=== PATIENT | female | born 1935 | race Caucasian/White ===

== ENCOUNTER 2021-05-01 10:26 | Emergency (ER) | payer MEDICARE, SELFPAY ==
--- NOTE | ~2021-05-01 | XR_ITS ---
EXAMINATION: XR lumbar spine min 4V DATE: 05/01/2021 11:11 INDICATION: Low back pain. Fall 3 weeks ago. TECHNIQUE: 5 views of lumbar spine were obtained. COMPARISON: None. FINDINGS: There is 15 degrees levoscoliosis of lumbar spine. Vertebral body heights are normal. There is moderately decreased disc height at L4-L5 and L5-S1. There are endplate osteophytes at all levels . There is severe facet joint osteoarthritis in lower lumbar spine. There is moderate neural foramina l stenosis on the right at L4-L5 and on the left at L4-L5 and L5-S1. There is a surgical clip in the pelvis. Surgical clips in the right upper quadrant are likely from cholecystectomy. IMPRESSION: 1. Moderate lumbar spondylosis. 2. Lumbar levoscoliosis. Reviewed, dictated and finalized at location A.
--- NOTE | ~2021-05-01 | XR_ITS ---
EXAMINATION: XR hip RT min 3V w AP pelvis DATE: 05/01/2021 11:11 INDICATION: Right hip pain. Fall 3 weeks ago. TECHNIQUE: An anteroposterior view of the pelvis and 3 views of right hip were obtained. COMPARISON: None. FINDINGS: There is lumbar levoscoliosis and moderate spondylosis. No fracture. There is moderate oste oarthritis of the hips. A surgical clip overlies the pelvis. IMPRESSION: 1. Moderate osteoarthritis of the hips. Reviewed, dictated and finalized at location A.
[2021-05-01 10:38] VITALS: PULSE 68; RESP 17; TEMP 36.4; O2SAT 100
[2021-05-01 10:47] VITALS: BP 154/60
--- NOTE | 2021-05-01 10:58 | ED.GENADULT ---
HPI - General Adult General Chief complaint: Unspecified Stated complaint: back to hip pain Time Seen by Provider: 05/01/21 10:31 Source: patient Mode of arrival: ambulatory Limitations: no limitations History of Present Illness HPI narrative: Patient is a 86-year-old female presenting with chief complaint of pain to the low back into the right hip that began after falling on her right knee 5 days ago. Patient reports she does not have any pain to the knee but approximately 2 days after the fall she began having pain to her low back and right hip. She reports that she has been taking tramadol that was prescribed to her by her primary care doctor for past back pain and that alleviates the discomfort however after 8 hours when the medication wears off the discomfort returns. She denies any head impact, loss of consciousness, injuries to any other areas. She denies any saddle paresthesias or loss of bowel or bladder function. Patient has still been able to ambulate without assistive devices. Patient reports that she saw her primary care to discuss the discomfort and was directed to report to the emergency department. Related Data Home Medications Medication Instructions Recorded Confirmed latanoprost 0.005 % eye drops 1 drop EACH EYE DAILY 12/01/19 11/23/20 amlodipine 5 mg tablet 5 mg PO DAILY 11/23/20 11/23/20 Allergies Allergy/AdvReac Type Severity Reaction Status Date / Time No Known Drug Allergies Allergy Unknown Verified 05/01/21 10:47 Review of Systems Review of Systems: CONSTITUTIONAL: Denies fever, chills, or sweats. EYES: Denies visual changes, redness, or discharge. ENT: Denies rhinorrhea, congestion, sore throat, or otalgia. CARDIOVASCULAR: Denies chest pain, palpitations, or edema. RESPIRATORY: Denies cough or dyspnea. GASTROINTESTINAL: Denies abdominal pain, nausea, vomiting, or diarrhea. GENITOURINARY: Denies dysuria or hematuria. SKIN: Denies rash or itching. MUSCULOSKELETAL: Reports hip pain and back pain, denies joint pain, or myalgia. NEUROLOGIC: Denies headache, numbness, dizziness, or weakness. PSYCHIATRIC: Denies anxiety or depression. [facility] Past Medical History Medical History (Updated 05/01/21 @ 12:29 by Silviano Segundo PA-C) Aortic stenosis JAMARI (generalized anxiety disorder) Glaucoma HTN (hypertension) Mixed hyperlipidemia Osteopenia Paroxysmal A-fib Tricuspid regurgitation Type 2 diabetes mellitus with diabetic chronic kidney disease Surgical History Surgical History History of appendectomy History of cholecystectomy History of total hysterectomy Family History Family History Mother Patient's mother is Carcinoma of colon Father Patient's father is Sibling Patient's sister is in good health Patient's brother is Carcinoma of esophagus Lymphoma Social History Social History (Updated 12/08/20 @ 10:10 by Diane Mccauley CMA) Social History: Second hand tobacco smoke exposure: No Alcohol intake: never Substance use: never Substance use type: does not use Gender identity (if verbalized by the patient): Female Sexual Orientation (if Verbalized by the Patient): Straight or Heterosexual Exam Narrative: GENERAL: Well-appearing, well-nourished, and in no acute distress. HEAD: Normocephalic, atraumatic. EYES: PERRLA and EOMI to left eye.Prosthetic device in right with chronic deformity to right orbit. CHEST: Clear to auscultation. No respiratory distress. No wheezes rales or rhonchi HEART: Regular rate and rhythm. ABDOMEN: Soft, nontender, nondistended, normal active bowel sounds. EXTREMITIES: Tenderness with palpation diffusely right side low back, gluteus, and over right greater trochanter. Normal range of motion. No edema or abrasions. No tenderness with palpation of right knee.
== END 2021-05-01 12:44 | disposition home or self-care (01) ==
PROVIDERS: Emergency Provider Emergency Medicine; PCP Family Medicine
DX: S76.011A Strain of muscle, fascia and tendon of right hip, initial encounter (principal); I48.0 Paroxysmal atrial fibrillation; I08.2 Rheumatic disorders of both aortic and tricuspid valves; E11.22 Type 2 diabetes mellitus with diabetic chronic kidney disease; I12.9 Hypertensive chronic kidney disease with stage 1 through stage 4 chronic kidney disease, or unspecified chronic kidney disease; N18.9 Chronic kidney disease, unspecified; E78.2 Mixed hyperlipidemia; H40.9 Unspecified glaucoma; M85.80 Other specified disorders of bone density and structure, unspecified site; M16.0 Bilateral primary osteoarthritis of hip; M47.816 Spondylosis without myelopathy or radiculopathy, lumbar region; W19.XXXA Unspecified fall, initial encounter
CPT/HCPCS: 72110; 73502; 99284

== ENCOUNTER 2021-07-21 13:08 | Observation (INO) | payer MEDICARE, SELFPAY ==
[2021-07-21] VITALS (8 sets, daily range): BP systolic 144–166; BP diastolic 48–62; PULSE 63–70; RESP 14–22; TEMP 36.4–36.9; O2SAT 96–98
--- NOTE | ~2021-07-21 | US_ITS ---
EXAMINATION: US carotid duplex BI EXAM DATE: 07/21/2021 18:06 INDICATION: Dizziness, transient ischemic attack. Right-sided facial droop. TECHNIQUE: Grayscale, color and pulsed Doppler images of the cervical carotid arteries were obtained . The degree of vessel stenosis is placed in one of the following categories: normal, <50% stenosis, 50-69% stenosis, >=70% stenosis but less than near-occlusion, near-occlusion, or occlusion. Note that percent stenosis relative to normal distal artery lumen diameter is indirectly measured from velocit y measurements as described by Alistair, et al. Radiology 2003; 229:340-346. There is no prior study fo r comparison. FINDINGS: RIGHT SIDE: Right common carotid artery peak systolic velocity (PSV in cm/s): 171 Right bulb/internal carotid artery peak systolic velocity (PSV in cm/s): 88 Right internal carotid artery end diastolic velocity (EDV in cm/s): 16 Right ICA/CCA peak systolic ratio: 0.5 Right external carotid artery peak systolic velocity (PSV in cm/s): 121 Right vertebral artery antegrade flow: yes There is mild carotid bulb plaque. Velocity and Doppler waveforms in the common and internal carotid arteries is normal. LEFT SIDE: Left common carotid artery peak systolic velocity (PSV in cm/s): 139 Left bulb/internal carotid artery peak systolic velocity (PSV in cm/s): 101 Left internal carotid artery end diastolic velocity (EDV in cm/s): 24 Left ICA/CCA peak systolic ratio: 0.7 Left external carotid artery peak systolic velocity (PSV in cm/s): 155 Left vertebral artery antegrade flow: yes There is mild carotid bulb plaque. Velocity and Doppler waveforms in the common and internal carotid arteries is normal. Incidental internal jugular chain lymph node, 8 mm in short axis diameter within normal size limits. Echogenic fatty hilum. IMPRESSION: 1. Less than 50 percent stenosis in the right internal carotid artery. 2. Less than 50 percent stenosis in the left internal carotid artery. > Reviewed, dictated and finalized at location A. [employer]
--- NOTE | ~2021-07-21 | MR_ITS ---
EXAMINATION: MR brain/brain stem wo/w con DATE: 07/22/2021 10:58 INDICATION: Vertigo. TECHNIQUE: Magnetic resonance imaging (MRI) of the brain and brainstem was performed without and with 15 mL MultiHance intravenous contrast. Sequences included sagittal and axial T1-weighted FSE, axial diffusion-weighted FS EPI, axial T2*-weighted GRE, axial T2-weighted FLAIR Propeller, and axial T2-we ighted Propeller. Postcontrast sequences included axial and coronal T1-weighted FSE. Apparent diffusi on coefficient (ADC) maps were created. COMPARISON: Head CT 07/21/2021 FINDINGS: There are scattered areas of nonspecific increased T2-weighted signal intensity in the cere bral white matter and pillo. There is no intracranial hemorrhage, acute infarction, or abnormal intrac ranial mass lesion. The ventricles are normal in size. There is a small right mastoid effusion. There are likely changes of left ocular lens replacement surgery. The right ocular globe is absent. There are surgical versus old posttraumatic changes of the right maxillary sinus. There is mucosal thickeni ng in right maxillary sinus. IMPRESSION: 1. Mild nonspecific cerebral white matter disease and pontine disease, which likely represents chroni c small vessel ischemic disease. Reviewed, dictated and finalized at location A. CARRIER IMPRESSION: 1. Mild nonspecific cerebral white matter disease and pontine disease, which maisha gabriel represents chronic small vessel ischemic disease.
--- NOTE | ~2021-07-21 | CT_ITS ---
EXAMINATION: CT brain wo con DATE: 07/21/2021 13:50 INDICATION: Weakness TECHNIQUE: Computed tomography (CT) of the head was performed without intravenous contrast. Sagittal and coronal reconstructions were performed. The mA was adjusted according to patient size. Iterative reconstruction technique was employed. The dose-length product was 605.33 mGy-cm. COMPARISON: None FINDINGS: No acute intracranial hemorrhage, acute infarction or abnormal extra axial fluid collection. Symmetri c prominence of the sulci consistent with mild age-appropriate diffuse cerebral volume loss. Ventricl es are normal and symmetric. No mass/mass effect. A prosthesis is present in the right orbit at the s ite of the absent globe. There also appears to been resection of portions of the weathers of the right m axillary sinus. The left orbit orbit, remainder of the paranasal sinuses and mastoid air cells are no rmal. IMPRESSION: 1. No acute intracranial process. 2. Postoperative changes at the right orbit and maxillary sinus. Reviewed, dictated and finalized at location B. LEGALS
--- NOTE | 2021-07-21 13:18 | ECG_ITS ---
Measurements Intervals [place] Rate: 64 P: 83 VA: 164 QRS: -21 QRSD: 93 T: 66 QT: 397 QTc: 411 Interpretive Statements SINUS RHYTHM INCOMPLETE RIGHT BUNDLE BRANCH BLOCK LEFT VENTRICULAR HYPERTROPHY AND ST-T CHANGE BASELINE ARTIFACT- I, II, III, AVR, AVL, AVF, V1-V6 BORDERLINE ECG Electronically Signed On 07-21-2021 14:20:13 [employer] by George Goetz D.O.
--- NOTE | 2021-07-21 13:36 | ED.DIZZY ---
HPI - Dizziness General Chief Complaint: Neuro Symptoms/Deficit Stated Complaint: stroke like symptoms Time Seen by Provider: 07/21/21 13:17 Source: patient Mode of arrival: ambulatory Limitations: no limitations History of Present Illness HPI Narrative: Patient is an 86-year-old female complaining of 3 episodes of dizziness today. Patient currently denies being dizzy. Patient denies any headache, speech or visual disturbance, focal weakness or numbness, chest pain, shortness of breath, abdominal pain, nausea, vomiting, fever or chills. Related Data Home Medications Medication Instructions Recorded Confirmed latanoprost 0.005 % eye drops 1 drop EACH EYE DAILY 12/01/19 05/09/21 amlodipine 5 mg tablet 5 mg PO DAILY 11/23/20 05/09/21 Allergies Allergy/AdvReac Type Severity Reaction Status Date / Time No Known Drug Allergies Allergy Unknown Verified 05/09/21 13:37 Review of Systems Review of Systems: All systems reviewed & are unremarkable except as noted in HPI and below Constitutional: Constitutional: Denies body ache(s), Denies chills, Denies excessive sweating, Denies fatigue, Denies fever(s), Denies headache(s), Denies lethargy, Denies malaise, Denies weakness and Denies weight loss Eyes: Eyes: Denies blurry vision, Denies change in vision and Denies loss of vision ENT: Denies dizziness, Denies ear discharge, Denies headache(s), Denies lip swelling, Denies epistaxis, Denies nasal congestion, Denies neck pain, Denies throat swelling and Denies tongue swelling Cardiovascular: Cardiovascular: Denies chest pain, Denies chest pain at rest, Denies chest pain with activity, Denies diaphoresis, Denies rapid heart rate, Denies edema, Denies irregular heart rhythm, Denies lightheadedness, Denies palpitations, Denies dyspnea and Denies dyspnea on exertion Respiratory: Respiratory: Denies chest congestion, Denies cough, Denies hemoptysis, Denies dyspnea and Denies dyspnea on exertion Gastrointestinal: Gastrointestinal: Denies abdominal pain, Denies melena, Denies hematochezia, Denies diarrhea, Denies nausea, Denies vomiting and Denies hematemesis Musculoskeletal: Musculoskeletal: Denies abnormal gait, Denies deformity, Denies joint swelling, Denies limited range of motion, Denies neck pain and Denies numbness Neurologic: Denies Abnormal speech present, Denies abnormal gait, Denies confusion, Reports dizziness, Denies headache(s), Denies focal weakness, Denies loss of vision, Denies numbness, Denies Other visual disturbances, Denies Sensory deficit (Neuro) and Denies weakness Psychiatric: Psychiatric: Denies confusion, Denies depression, Denies auditory hallucinations, Denies homicidal ideation and Denies suicidal ideation Endocrine: Endocrine: Denies cold intolerance, Denies excessive sweating, Denies fatigue, Denies heat intolerance and Denies palpitations Hematologic/Lymphatic: Hematologic/Lymphatic: Denies easy bleeding and Denies easy bruising Allergic/Immunologic: Allergic/Immunologic: Denies lip swelling, Denies throat swelling and Denies tongue swelling PMFSH Past Medical History Medical History Aortic stenosis Arthritis of both hips JAMARI (generalized anxiety disorder) Glaucoma HTN (hypertension) Lumbar spondylosis Mixed hyperlipidemia Osteopenia Paroxysmal A-fib Tricuspid regurgitation Type 2 diabetes mellitus with diabetic chronic kidney disease Surgical History Surgical History History of appendectomy History of cholecystectomy History of total hysterectomy Family History Family History Mother Patient's mother is Carcinoma of colon Father Patient's father is Sibling Patient's sister is in good health Patient's brother is Carcinoma of esophagus Lymphoma Social History Social
[2021-07-21 14:15] LABS: Basophils Percent Auto 0.4 % (0.2-1.2); Eosinophils Absolute Auto 0.2 K/mm3 (0-0.3); Eosinophils Percent Auto 2.1 % (0-4.4); Hematocrit 38.3 % (37.0-47.0); Hemoglobin 12.6 g/dL (12.0-15.0); Immature Granulocyte Absolute 0.04 K/mm3 (0.00-0.031); Immature Granulocyte Percent A 0.4 % (0-0.5); Lymphocytes Percent Auto 33.6 % (18.3-44.2); Mean Corpuscular HGB Conc 32.9 g/dl (32-36); Mean Corpuscular Volume 97.2 fl (80-100); Monocytes Absolute Auto 0.5 K/mm3 (0.1-0.6); Monocytes Percent Auto 5.3 % (2.6-8.5); Neutrophils Absolute Auto 5.2 K/mm3 (1.3-6.7); Neutrophils Percent Auto 58.2 % (45.5-73.1); Platelet Count Result 144 k/mm3 (150-375); Red Blood Count 3.94 M/mm3 (4.2-5.4); Red Cell Distribution Width 12.6 % (11.5-14.5); White Blood Count 8.9 K/mm3 (4.5-10.0)
[2021-07-21 14:22] LABS: Glucose Point of Care 175 mg/dl (65-105)
[2021-07-21 14:24] LABS: INR 0.9; Prothrombin Time 12.2 Seconds (11.1-14.7)
[2021-07-21 14:25] LABS: Partial Thromboplastin Time 23.9 SECONDS (22.3-36.8)
[2021-07-21 14:27] LABS: Anion Gap 11 mmol/L (8-16); Blood Urea Nitrogen 21 mg/dL (7-17); Calcium 9.7 mg/dL (8.4-10.2); Carbon Dioxide 26 mmol/L (22-30); Chloride 103 mmol/L (98-107); Estimated CRCL calculation 47 ml/min; Estimated Glomerular Filt Rate > 60; Glucose 171 mg/dL (65-110); Sodium 140 mmol/L (137-145)
[2021-07-21 14:38] LABS: Troponin I < 0.012 ng/mL (0.000-0.034)
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
--- NOTE | 2021-07-21 19:19 | PC.NURSE ---
Assumed care of pt, pt is alert and upright, on tele monitor w/ VSS. BS 183 HS. Pt taken to restroom via devika mcfadden.
[2021-07-21 19:25] LABS: Glucose Point of Care 183 mg/dl (65-105)
--- NOTE | 2021-07-21 23:36 | ADMGEN ---
This patient, Betsy Frost, was admitted to Medical Room 347-01. Patient/family oriented to hospital policies and general routines including ID bracelet, bed and alarms, visiting hours, pain management, procedures, bathroom and other care routines, personal items, smoking policy, room service/diet, and visiting hours. Information on how to activate the Rapid Response Team has been discussed. Patient/Family are encouraged to report perceived risks to care and to ask questions if they do not understand what they are told or what they should do.
[2021-07-22] VITALS (8 sets, daily range): BP systolic 148–173; BP diastolic 49–62; PULSE 58–90; RESP 14–16; TEMP 36–36.6; O2SAT 97–100; BMI 30.6
[2021-07-22 00:39] LABS: Glucose Point of Care 148 mg/dl (65-105)
[2021-07-22 06:03] LABS: Glucose Point of Care 144 mg/dl (65-105)
[2021-07-22 06:34] LABS: Alanine Aminotransferase 15 U/L (4-35); Albumin Level 3.8 g/dL (3.5-5.1); Alkaline Phosphatase 56 U/L (38-126); Anion Gap 8 mmol/L (8-16); Aspartate Amino Transferase 22 U/L (14-36); Bilirubin,Total 0.5 mg/dL (0.2-1.3); Blood Urea Nitrogen 19 mg/dL (7-17); Calcium 9.3 mg/dL (8.4-10.2); Carbon Dioxide 27 mmol/L (22-30); Chloride 102 mmol/L (98-107); Estimated CRCL calculation 47 ml/min; Estimated Glomerular Filt Rate > 60; Glucose 144 mg/dL (65-110); Magnesium 1.4 mg/dL (1.6-2.3); Potassium 3.6 mmol/L (3.4-5.0); Sodium 137 mmol/L (137-145)
[2021-07-22] MEDS: MAGNESIUM SULF 2 GM/WATER 50ML 2 GM/50 ML BAG IVPB (09:00)
[2021-07-22 12:02] LABS: Glucose Point of Care 202 mg/dl (65-105)
[2021-07-22] MEDS: INSULIN ASPART (*BKC) 100 UNITS/ML SUB-Q (12:14)
--- NOTE | 2021-07-22 13:32 | PM.DS ---
DS: Admitting Diagnosis Discharge Date 07/22/2021 Admitting Diagnosis Dizziness DS: Discharge Diagnosis Discharge Diagnosis (1) Vertigo: Code(s): R42 - Dizziness and giddiness Status: Acute Assessment and Plan: Three episodes of vertigo before admission none this hospital stay Brain MRI and carotid Doppler no acute finding Patient instructed to follow-up with her primary care physician and/or neurologist within 1 week Patient instructed to return back to our ED if her symptoms return or worsen. (2) Paroxysmal atrial fibrillation: Code(s): I48.0 - Paroxysmal atrial fibrillation Status: Acute Assessment and Plan: Sinus rhythm controlled Patient does not take anticoagulant for her AFib. She will need to follow with her primary care physician to determine if it is needed at this time. Continue metoprolol 25 mg b.i.d. (3) Hypertension: Code(s): I10 - Essential (primary) hypertension Status: Acute Assessment and Plan: Slightly elevated Continue taking home medication amlodipine 5 mg daily, hydrochlorothiazide 25 mg daily, lisinopril 40 mg daily, metoprolol 25 mg b.i.d. Follow with her primary care physician for medication adjustment if needed Patient instructed to take her blood pressure med daily and give results to her primary care physician (4) Type 2 diabetes mellitus: Code(s): E11.9 - Type 2 diabetes mellitus without complications Status: Acute Assessment and Plan: Blood sugars less than 300 hemoglobin A1c was 6.6%. Continue home medication DS: Summary Hospital Course Reason for hospitalization: Dizziness Hospital Course: This is a very pleasant 86-year-old female with hypertension, hyperlipidemia, type 2 diabetes mellitus, paroxysmal atrial fibrillation, valvular heart disease, and anxiety presented to the emergency department for evaluation of dizziness. While she was walking from her bedroom to the bathroom she developed sudden onset of vertigo however that only lasted for a few seconds. Not long prior to arrival she bent over to pick something up and she once again had pretty significant vertigo which lasted much longer than the 1st time and she felt it would be best to come in for evaluation. Patient denies any of her previous symptoms. She will need to follow up with her primary care physician who will give her the appropriate referral if needed. Patient instructed to return to emergency department if her symptoms return. Patient does live alone and notes that she feels safe going alone she has a daughter is day a couple houses down and can quickly if needed. Patient denies cp, sob, palpitation, diarrhea, constipation, lightheadness, headache, dizziness or chills and fevers. CT of the head and carotid artery Doppler negative fo cva, blockage or stenosis Time spent 60 minutes Time Spent with Patient Time attestation: Total time spent providing and/or coordinating discharge services: Exam Narrative: GENERAL: This is a well-nourished, well-developed patient, in no apparent distress. HEAD: normocephalic, atraumatic. EYES: PERRL. Sclera clear/white. Vision is grossly intact. EARS: External ears normal, auditory canals clear and without drainage, TMs normal without perforation. Hearing grossly intact. NOSE: External nose normal with no obvious nasal discharge, nares without redness, no rhinorrhea. THROAT: Mucous membranes moist, posterior pharynx clear. NECK: Neck supple, non-tender without lymphadenopathy, masses or thyromegaly. CARDIOVASCULAR: Regular rate and rhythm without murmurs, gallops, or rubs. RESPIRATORY: Clear to auscultation. Breath sounds equal bilaterally. No wheezes, rales, or rhonchi. GASTROINTESTINAL: Abdomen soft, non-tender, nondistended. Bowel sounds are active. No hepato-splenomegaly, or palpable masses. No guarding. SKIN: warm, intact with no suspicious lesions or rash, good texture and turgor. DAXA
--- NOTE | 2021-07-22 23:03 | ECHO_ITS ---
Patient Info Name: Betsy Frost Age: 86 years : 1935 Gender: Female Ht: 64 in Wt: 179 lbs BSA: 1.94 m2 HR: 72 bpm BP: 148 / 49 mmHg Technical Quality: Good Exam Date: 07/22/2021 9:57 AM Exam Location: [facility] Pulmonary Patient Status: Inpatient Admit Date: 07/21/2021 Staff Ordering Physician: Lupe Melchor PA-C Refractory Tile Helper: Slime Forrester RDCS Attending Provider: Quita Becerril MD Referring Physician: Jill PRATT; Exam Type: CA echo doppler color flow Study Info Indications I48.0 - Paroxysmal atrial fibrillation Complete two-dimensional, color flow and Doppler transthoracic echocardiogram is performed. Summary 1. Complete two-dimensional, color flow and Doppler transthoracic echocardiogram is performed. 2. Normal LV size, sigmoid hypertrophy. Hyperdynamic LV systolic function, ejection fraction more than 70%. Normal diastolic function. Mild left atrial enlargement. Normal structure of the valves. Unable to assess RVSP due to inadequate TR jet. Sinus rhythm. Left Ventricle Left ventricular chamber dimension is normal. Left ventricular systolic function is hyperdynamic, estimated at >70%. The left ventricular diastolic function is normal. Right Ventricle Right ventricular chamber dimension is normal. Right ventricular systolic function is normal. Left Atria Left atrial chamber dimension is mildly enlarged. Right Atria Right atrial chamber dimension is normal. Aortic Valve The aortic valve is normal. There is no aortic valve stenosis. Pulmonic Valve The pulmonic valve is normal. Mitral Valve The mitral valve has normal leaflets. There is trace mitral valve regurgitation. Tricuspid Valve The tricuspid valve leaflets are normal. There is trace tricuspid valve regurgitation. Pericardium/Pleural The pericardium appears epicardial fat pad. Inferior Vena Cava Normal inferior vena cava with >50% collapse upon inspiration consistent with normal right atrial pressure, 8 mmHg. Aorta The aortic root size at the sinus of Valsalva is normal. Left Ventricular Outflow Tract Name Value Normal LVOT 2D LVOT Diameter 1.8 cm LVOT Doppler LVOT Peak Gradient 4 mmHg LVOT Mean Gradient 2 mmHg LVOT VTI 24 cm LVOT VTI/AV VTI Ratio 0.7 LVOT Stroke Volume 63 ml LVOT CO 3.7 l/min LVOT CI 1.9 l/min/m2 Pulmonic Valve Name Value Normal PV Doppler PV Peak Gradient 6 mmHg Mitral Valve Name Value Normal MV Doppler ----
== END 2021-07-22 14:25 | disposition home or self-care (01) ==
LOC: ANHED 16:26 → ANH3MED 07-22 00:39 → ANH3MEDSUR 07-24 11:24
PROVIDERS: Internal Medicine; Physician Assistant; Admitting Provider Family Medicine; Emergency Provider Emergency Medicine; PCP Family Medicine; Visit Provider Internal Medicine
DX: R42 Dizziness and giddiness (principal); I48.0 Paroxysmal atrial fibrillation; I08.2 Rheumatic disorders of both aortic and tricuspid valves; I12.9 Hypertensive chronic kidney disease with stage 1 through stage 4 chronic kidney disease, or unspecified chronic kidney disease; N18.9 Chronic kidney disease, unspecified; E11.22 Type 2 diabetes mellitus with diabetic chronic kidney disease; E78.2 Mixed hyperlipidemia; M16.0 Bilateral primary osteoarthritis of hip; M85.80 Other specified disorders of bone density and structure, unspecified site; M47.816 Spondylosis without myelopathy or radiculopathy, lumbar region; H40.9 Unspecified glaucoma; F41.1 Generalized anxiety disorder
CPT/HCPCS: 36415; 70450; 70553; 80048; 80053; 82948; 83735; 84443; 84484; 85025; 85610; 85730; 93005; 93306; 93880; 96374; 97165; 99285; A9577; G0378; J1815; J3475

== ENCOUNTER 2021-08-03 13:05 | Outpatient (RCR) | payer MEDICARE, SELFPAY ==
--- NOTE | 2021-08-03 14:01 | PTOPEVAL ---
PHYSICAL THERAPY EVALUATION AND PLAN OF CARE 08-03-21 Thank you for referring Betsy Frost to [facility] for the diagnosis of vertigo/ BPPV. The evaluation was performed and the Eply maneuver was performed, for BPPV on her R side, with symptoms clearing. Education was completed and handouts issued. She preferred not to return if she did not have to, due to problems getting here. She is to call for any questions or if additional treatment is needed, 0-2x?/week for 4 weeks. Please review, sign, date and return this plan of care KASHIF. I agree with and certify that the following plan of care is medically necessary. Referring Physician Date Attending Provider: Sahil Solis NP *PT Outpatient Evaluation Document 08/03/21 13:10 FELIPA (Rec: 08/03/21 14:01 FELIPA [id number]) Past Medical History Source of Past Medical History Recalled from Previous Visit, Confirmed with Patient/Family Neurological History Hx Neurological Disorders No Significant History Cardiovascular History Hx Atrial Fibrillation Yes: meds, follow with spare parts clerk Hx Hypertension Yes: meds Hx Other Cardiac Disorders Yes: heart valve leak- non surgery Respiratory History Hx Respiratory Disorders No Significant History Gastrointestinal History Hx Appendectomy Yes Hx Cholecystectomy Yes Genitourinary History Hx Genitourinary Disorders No Significant History Musculoskeletal History Hx Arthritis Yes: pain in neck Hx Back Pain Yes: intermittent Hematological History Hx Blood Transfusions Yes Endocrine History Hx Diabetes Yes: type II, meds- increased due to elevated blood sugar HEENT History Hx Eye Surgery Yes: right eye prosthesis Hx Other HEENT Disorders Yes: glasses Psychosocial History Hx Psychiatric Disorders No Significant History Pain History History of Any Previous or Ongoing No Significant History Instance of Pain Anesthesia History Hx Anesthesia Reactions No Significant History Evaluation Information Problem Diagnosis vertigo/ BPPV Cause 07-21-21 Prior Level of Function Activity Level (Last 3 Months) Activity of Daily Living Ability Independent Indoor/Home Mobility Independent Community Mobility Independent Stairs Ability Independent Functional Cognition (Planning, Shopping Independent , Taking Medications) Cooking Yes Cleaning Yes Laundry Yes Shopping Yes Driving No Home Setting Home Type House Living Situation With Spouse Mo
--- NOTE | 2021-09-18 13:42 | PCPTNOTE ---
PHYSICAL THERAPY DISCHARGE 09-19-21 Attending Provider: Sahil Solis NP Patient:Betsy Frost Date of :1935 Mrs. Frost has not returned for any further treatments since the evaluation on 08/03/2021, for the diagnosis of BPPV. Therefore she will be discharged at this time. The goals were not addressed. Thank you for referring this patient to [facility]. Please review, sign, date and return this discharge summary KASHIF. I have been updated about the patient's current status and I agree with discharge from the above service at this time. Referring Physician Date
== END 2021-09-18 15:21 | disposition home or self-care (01) ==
LOC: ANHPT 13:05
PROVIDERS: PCP Family Medicine; Visit Provider Nurse Practitioner Family
DX: H81.13 Benign paroxysmal vertigo, bilateral (principal)
CPT/HCPCS: 97161

== ENCOUNTER 2022-02-14 11:50 | Emergency (ER) | payer MEDICARE, SELFPAY ==
[2022-02-14] VITALS (46 sets, daily range): BP systolic 126–181; BP diastolic 40–72; PULSE 54–73; RESP 10–25; TEMP 36.5–36.6; O2SAT 96–100
--- NOTE | ~2022-02-14 | CT_ITS ---
EXAMINATION: CT brain wo con DATE: 02/14/2022 12:32 INDICATION: Acute confusion TECHNIQUE: Computed tomography (CT) of the head was performed without intravenous contrast. Sagittal and coronal reconstructions were performed. The mA was adjusted according to patient size. Iterative reconstruction technique was employed. The dose-length product was 605.33 mGy-cm. COMPARISON: head CT dated 07/21/21 and brain MR dated 07/22/21 FINDINGS: No acute intracranial hemorrhage, acute infarction or abnormal extra axial fluid collection. Symmetri c prominence of the sulci consistent with mild age-appropriate diffuse cerebral volume loss. Ventric les are normal and symmetric. No mass/mass effect. Changes of left intraocular lens replacement. 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 Postoperative versus post tr aumatic changes of the right maxillary sinus which appears small with mild mucosal thickening. IMPRESSION: 1. Age-appropriate mild diffuse volume loss. No acute intracranial process. 2. Postoperative and potentially old posttraumatic changes at the right orbit and maxillary sinus. Reviewed, dictated and finalized at location A. IMPRESSION: 1. Age-appropriate mild diffuse volume loss. No acute intracranial process. 2. Postoperative and potentially old posttraumatic changes at the right orbit a nd maxillary sinus.
--- NOTE | 2022-02-14 12:08 | ECG_ITS ---
Measurements Intervals [place] Rate: 59 P: 180 [place]: 126 QRS: -12 QRSD: 97 T: 56 QT: 406 QTc: 403 Interpretive Statements SINUS BRADYCARDIA LOW QRS VOLTAGE IN PRECORDIAL LEADS POSSIBLE RIGHT VENTRICULAR CONDUCTION DELAY POSSIBLE LEFT VENTRICULAR HYPERTROPHY BORDERLINE ECG COMPARED TO ECG 07/21/2021 14:16:54 HEART RATE HAS DECREASED Electronically Signed On 02-14-2022 13:03:39 CDT by Felipe Garcia M.D.
[2022-02-14 12:33] LABS: Basophils Percent Auto 0.3 % (0.2-1.2); Eosinophils Absolute Auto 0.1 K/mm3 (0-0.3); Eosinophils Percent Auto 1.2 % (0-4.4); Hematocrit 36.4 % (37.0-47.0); Hemoglobin 12.1 g/dL (12.0-15.0); Immature Granulocyte Absolute 0.02 K/mm3 (0.00-0.031); Immature Granulocyte Percent A 0.2 % (0-0.5); Lymphocytes Absolute Auto 3.67 K/mm3 (0.9-3.2); Lymphocytes Percent Auto 39.6 % (18.3-44.2); Mean Corpuscular HGB Conc 33.2 g/dl (32-36); Mean Corpuscular Hemoglobin 31.8 pg (26-34); Mean Corpuscular Volume 95.5 fl (80-100); Monocytes Absolute Auto 0.5 K/mm3 (0.1-0.6); Neutrophils Percent Auto 53.7 % (45.5-73.1); Platelet Count Result 153 k/mm3 (150-375); Red Blood Count 3.81 M/mm3 (4.2-5.4); Red Cell Distribution Width 13.6 % (11.5-14.5); White Blood Count 9.3 K/mm3 (4.5-10.0)
[2022-02-14 12:45] LABS: Alanine Aminotransferase 15 U/L (6-35); Albumin Level 4.2 g/dL (3.5-5.1); Alkaline Phosphatase 53 U/L (38-126); Anion Gap 13 mmol/L (8-16); Aspartate Amino Transferase 21 U/L (14-36); Bilirubin,Total 0.5 mg/dL (0.2-1.3); Blood Urea Nitrogen 17 mg/dL (7-17); Calcium 8.9 mg/dL (8.4-10.2); Carbon Dioxide 23 mmol/L (22-30); Chloride 105 mmol/L (98-107); Estimated CRCL calculation 41 ml/min; Estimated Glomerular Filt Rate 60; Glucose 128 mg/dL (65-110); Potassium 3.7 mmol/L (3.4-5.0); Sodium 141 mmol/L (137-145)
[2022-02-14 16:09] LABS: Appearance Urine Cloudy (Clear); Bilirubin Urine Negative (Negative); Blood Urine Trace-lysed (Negative); Color Urine Yellow (Yellow); Glucose Urine UA Negative (Negative); Ketones Urine Negative (Negative); Leukocyte Esterase Ur 2+ LEU/UL (Negative); Nitrate Urine Positive (Negative); Protein Urine Negative (Negative); Specific Grav Ur 1.015 (1.001-1.035); Urobilinogen Urine 0.2 mg/dL (<2.0)
[2022-02-14 16:14] LABS: Bacteria Urine Trace /hpf; Mucus Urine Rare /lpf; Squamous Epithelial Cell Urine Occasional /hpf (Few); WBC Urine 31-50 /hpf
[2022-02-14 16:17] LABS: Add Urine Microscopic? YES
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
--- NOTE | 2022-02-14 17:58 | PC.NURSE ---
Transfer triage from [facility] called. They will put pt on wait list for bed.
[2022-02-14 18:41] LABS: SARS-CoV-2 RNA PCR Negative
[2022-02-14] MEDS: SIMVASTATIN 20 MG TABLET 40 MG PO (22:02)
[2022-02-14] MEDS: ASPIRIN 325 MG TABLET PO (22:02)
[2022-02-15] VITALS (51 sets, daily range): BP systolic 96–148; BP diastolic 50–93; PULSE 54–68; RESP 12–21; TEMP 37; O2SAT 95–99
--- NOTE | 2022-02-15 00:23 | PC.NURSE ---
[facility] transfer center called for an update. still no news on a bed.
== END 2022-02-15 08:45 | disposition short-term general hospital (02) ==
PROVIDERS: Emergency Medicine; Emergency Provider Emergency Medicine; PCP Family Medicine
DX: G45.9 Transient cerebral ischemic attack, unspecified (principal); Z20.822 Contact with and (suspected) exposure to COVID-19; I12.9 Hypertensive chronic kidney disease with stage 1 through stage 4 chronic kidney disease, or unspecified chronic kidney disease; E11.22 Type 2 diabetes mellitus with diabetic chronic kidney disease; N18.9 Chronic kidney disease, unspecified; I48.0 Paroxysmal atrial fibrillation; I08.2 Rheumatic disorders of both aortic and tricuspid valves; M19.90 Unspecified osteoarthritis, unspecified site; F41.9 Anxiety disorder, unspecified; Z90.710 Acquired absence of both cervix and uterus; Z79.82 Long term (current) use of aspirin; R82.998 Other abnormal findings in urine; Z66 Do not resuscitate; R00.1 Bradycardia, unspecified; R94.31 Abnormal electrocardiogram [ECG] [EKG]; Z79.84 Long term (current) use of oral hypoglycemic drugs
CPT/HCPCS: 36415; 70450; 80053; 81001; 85025; 85610; 85730; 87077; 87086; 87186; 93005; 96365; 99285; A9270; C9803; J0696; U0003; U0005

== ENCOUNTER 2022-12-04 12:57 | Emergency (ER) | payer MEDICARE, SELFPAY ==
--- NOTE | ~2022-12-04 | XR_ITS ---
EXAMINATION: XR foot LT 2V DATE: 12/04/2022 13:26 INDICATION: Left heel pain. TECHNIQUE: 2 views of left foot were obtained. COMPARISON: None. FINDINGS: Alignment is normal. No fracture. There is mild osteoarthritis of first metatarsophalangeal joint and some of the interphalangeal joints. There are enthesophytes at the posterior and plantar a spects of calcaneal tuberosity. IMPRESSION: 1. Mild polyarticular osteoarthritis. Reviewed, dictated and finalized at location A.
[2022-12-04 13:07] VITALS: BP 147/46; PULSE 64; RESP 16; TEMP 36.1; O2SAT 98
--- NOTE | 2022-12-04 13:46 | ED.GENADULT ---
HPI - General Adult General Chief complaint: Extremity Injury, Lower Stated complaint: Left Foot Pain Source: patient Mode of arrival: ambulatory Limitations: no limitations History of Present Illness HPI narrative: Patient presents for evaluation of left foot pain. Symptom onset 3 days ago. She cannot identify any precipitating injury. Pain is constant, 6/10 severity, without descriptive quality. Pain is primarily in left heel. She does not have any paresthesias. She took norco which she has used in the past for back pain. [place] did reduce her pain leevl. She recently purchased new shoes and believes her symptoms became more bothersome thereafter. Denies any pain or swelling in calf region. Related Data Home Medications Medication Instructions Recorded Confirmed latanoprost 0.005 % eye drops 1 drop ophthalmic (eye) DAILY 12/01/19 12/04/22 B Complex-Vitamin B12 1 tablet PO DAILY 07/21/21 12/04/22 PreserVision AREDS-2 1 tablet PO BID 07/21/21 12/04/22 alendronate-vitamin D3 1 tablet PO DAILY 07/21/21 12/04/22 aspirin 81 mg tablet,delayed 81 mg PO DAILY 11/12/22 12/04/22 release (Adult Aspirin Regimen) Allergies Allergy/AdvReac Type Severity Reaction Status Date / Time No Known Drug Allergies Allergy Unknown Verified 11/28/22 13:55 Review of Systems Review of Systems: CONSTITUTIONAL: Denies fever, chills, or sweats. EYES: Denies visual changes, redness, or discharge. ENT: Denies rhinorrhea, congestion, sore throat, or otalgia. CARDIOVASCULAR: Denies chest pain, palpitations, or edema. RESPIRATORY: Denies cough or dyspnea. GASTROINTESTINAL: Denies abdominal pain, nausea, vomiting, or diarrhea. GENITOURINARY: Denies dysuria or hematuria. SKIN: Denies rash or itching. MUSCULOSKELETAL:Reports pain in left heel. Denies back pain NEUROLOGIC: Denies headache, numbness, dizziness, or weakness. PSYCHIATRIC: Denies anxiety or depression. [facility] Past Medical History Medical History Acute ischemic multifocal multiple vascular territories stroke Aortic stenosis Arthritis of both hips Bilateral carotid bruits Chronic kidney disease, stage 2 (mild) Essential (primary) hypertension Generalized anxiety disorder Glaucoma Hypertension Lumbar spondylosis Mixed hyperlipidemia Mixed hyperlipidemia Osteopenia Osteopenia of multiple sites Paroxysmal atrial fibrillation Tricuspid regurgitation Tricuspid valve regurgitation, secondary Type 2 diabetes mellitus with diabetic chronic kidney disease Urinary tract infection Vitamin D deficiency Surgical History Surgical History History of appendectomy History of cholecystectomy History of enucleation of right eyeball History of total hysterectomy Family History Family History Mother Patient's mother is Carcinoma of colon Father Patient's father is Sibling Patient's sister is in good health Patient's brother is Carcinoma of esophagus Lymphoma Social History Social History Social History: The patient is and lives in her own home In [place]. She is a lifelong nonsmoker. No alcohol or illicit substance abuse. She designates her daughter Lizzette as her surrogate decision maker and she wishes to be a full code. Smoking status: Never smoker Second hand tobacco smoke exposure: Yes Alcohol intake: never Substance use: never Substance use type: does not use Lack of Transportation: No Lack of Food: Never True Current Housing: I Have Housing Concerned About Future Housing: No Difficulty Paying Gas/Electric Bills: No Difficulty Paying for Meds: No Currently Unemployed: YES Education: Decline to Answer Difficulty w/ Childcare or Fami
== END 2022-12-04 13:47 | disposition home or self-care (01) ==
PROVIDERS: Emergency Provider Nurse Practitioner; PCP Family Medicine
DX: M19.072 Primary osteoarthritis, left ankle and foot (principal); M16.0 Bilateral primary osteoarthritis of hip; I13.10 Hypertensive heart and chronic kidney disease without heart failure, with stage 1 through stage 4 chronic kidney disease, or unspecified chronic kidney disease; E11.22 Type 2 diabetes mellitus with diabetic chronic kidney disease; N18.2 Chronic kidney disease, stage 2 (mild); I35.0 Nonrheumatic aortic (valve) stenosis; H40.9 Unspecified glaucoma; E78.2 Mixed hyperlipidemia; M85.89 Other specified disorders of bone density and structure, multiple sites; I48.0 Paroxysmal atrial fibrillation; E55.9 Vitamin D deficiency, unspecified
CPT/HCPCS: 73620; 99213; G0463

== ENCOUNTER 2023-09-01 15:03 | Emergency (ER) | payer MEDICARE, SELFPAY ==
--- NOTE | ~2023-09-01 | CT_ITS ---
EXAMINATION: CTA brain carotid DATE: 09/01/2023 18:35 INDICATION: Left arm numbness TECHNIQUE: Computed tomographic angiography (CTA) of the head was performed without and with 100 mL O mnipaque-350 intravenous contrast. CTA of the neck was performed with intravenous contrast. Automated exposure control and iterative reconstruction technique were employed. The dose-length product was 1 652.90 mGy-cm. Maximum intensity projection and volume rendered 3D-reconstructions were created by yadira cueva technologist on a separate workstation. COMPARISON: CT brain 02/14/2022; MR brain 07/22/2021. FINDINGS: CT BRAIN: No acute large vessel infarct, intracranial hemorrhage, mass, or hydrocephalus. Left lens replacement . Absent right globe, with prosthesis. Postsurgical/posttraumatic change in the right maxillary sinus . CTA HEAD: No large vessel occlusion, aneurysm, high flow vascular malformation, nidus or extravasation. Patent cerebral veins. Symmetric parenchymal enhancement. CTA NECK: Aortic arch and proximal great vessels: Mild arch calcification. Bovine arch anatomy. Right common carotid, carotid bifurcation, and internal carotid artery: Mild calcification at the bif urcation.There is 0% stenosis of the proximal right internal carotid artery relative to normal distal artery lumen diameter (NASCET criteria). Left common carotid, carotid bifurcation, and internal carotid artery: Mild calcification at the bifu rcation.There is 0% stenosis of the proximal left internal carotid artery relative to normal distal a rtery lumen diameter (NASCET criteria). Vertebral arteries: No significant plaque or stenosis. Vertebral arteries co-dominant. Other findings: Enlarged anterior cervical chain lymph nodes. Multiple subcentimeter thyroid hypodens ities, which require no additional evaluation at this time. IMPRESSION: No acute intracranial process. No large vessel intracranial occlusion, high-grade intracranial stenosis, or aneurysm. No carotid or vertebral artery occlusion, dissection, or significant stenosis. Anterior cervical chain lymphadenopathy. Reviewed, dictated and finalized at location K. ET LATHE OPERATOR IMPRESSION: No acute intracranial process. No large vessel intracranial occlusion, high-grade intracranial stenosis, or an eurysm. No carotid or vertebral artery occlusion, dissection, or significant stenosis. Anterior cervical chain lymphadenopathy.
--- NOTE | ~2023-09-01 | XR_ITS ---
EXAMINATION: XR chest 1V portable Exam Date/Time: 09/01/2023 16:18 PLOW HOLDER HISTORY: L arm pain Comparison: None. RESULT: Lines, tubes, and devices: None. Lungs and pleura: Senescent change, otherwise clear. Cardiomediastinal silhouette: Unremarkable. Other: No acute osseous or upper abdominal finding. IMPRESSION: No acute cardiopulmonary process. Reviewed, dictated and finalized at location K. HOLDER
[2023-09-01 15:06] VITALS: BP 152/51; PULSE 77; RESP 20; TEMP 36.4; O2SAT 99
--- NOTE | 2023-09-01 15:08 | ECG_ITS ---
Measurements Intervals [place] Rate: 58 P: [place]: 0 QRS: -19 QRSD: 94 T: 58 QT: 381 QTc: 376 Interpretive Statements ATRIAL FIBRILLATION WITH SLOW VENTRICULAR RESPONSE VOLTAGE CRITERIA FOR LVH [MEETS CRITERIA IN ONE OF: R(aVL), S(V1), R(V5), R(V5/V6)+S(V1)] ABNORMAL ECG COMPARED TO ECG 02/14/2022 12:20:48 ATRIAL FIBRILLATION REPLACES SINUS RHYTHM Electronically Signed On 09-02-2023 7:02:24 MANAGER MONITORING by Luc Jeronimo M.D.
[2023-09-01 15:14] LABS: Glucose Point of Care 172 mg/dl (65-105)
[2023-09-01 15:24] LABS: Basophils Absolute Auto 0.1 K/mm3 (0.0-0.1); Basophils Percent Auto 0.4 % (0.2-1.2); Eosinophils Absolute Auto 0.1 K/mm3 (0-0.3); Eosinophils Percent Auto 1.1 % (0-4.4); Hematocrit 38.7 % (37.0-47.0); Hemoglobin 12.4 g/dL (12.0-15.0); Immature Granulocyte Absolute 0.03 K/mm3 (0.00-0.031); Immature Granulocyte Percent A 0.2 % (0-0.5); Lymphocytes Absolute Auto 5.92 K/mm3 (0.9-3.2); Lymphocytes Percent Auto 47.9 % (18.3-44.2); Mean Corpuscular Hemoglobin 31.3 pg (26-34); Mean Corpuscular Volume 97.7 fl (80-100); Mean Platelet Volume 11.2 fl (7.4-10.4); Monocytes Absolute Auto 0.5 K/mm3 (0.1-0.6); Neutrophils Absolute Auto 5.7 K/mm3 (1.3-6.7); Neutrophils Percent Auto 46.4 % (45.5-73.1); Platelet Count Result 165 k/mm3 (150-375); Red Blood Count 3.96 M/mm3 (4.2-5.4); Red Cell Distribution Width 12.4 % (11.5-14.5); White Blood Count 12.4 K/mm3 (4.5-10.0)
[2023-09-01 15:48] LABS: Alanine Aminotransferase 16 U/L (6-35); Albumin Level 4.2 g/dL (3.5-5.1); Alkaline Phosphatase 66 U/L (38-126); Anion Gap 7 mmol/L (8-16); Aspartate Amino Transferase 22 U/L (14-36); Bilirubin,Total 0.4 mg/dL (0.2-1.3); Blood Urea Nitrogen 36 mg/dL (7-17); Calcium 9.7 mg/dL (8.4-10.2); Carbon Dioxide 24 mmol/L (22-30); Chloride 107 mmol/L (98-107); Estimated CRCL calculation 26 ml/min; Estimated Glomerular Filt Rate 36; Glucose 182 mg/dL (65-110); Partial Thromboplastin Time 27.4 SECONDS (22.3-36.8); Potassium 4.7 mmol/L (3.4-5.0); Prothrombin Time 13.6 Seconds (11.1-14.7); Sodium 138 mmol/L (137-145)
[2023-09-01 15:58] LABS: Troponin I 0.017 ng/mL (0.000-0.034)
[2023-09-01 17:52] VITALS: BP 129/69; PULSE 54; PULSE 57; RESP 16; TEMP 36.6; O2SAT 99
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
[2023-09-01 19:40] VITALS: PULSE 64; RESP 15; O2SAT 99
== END 2023-09-01 19:42 | disposition home or self-care (01) ==
PROVIDERS: Emergency Provider Preventive Medicine Aerospace Medicine; PCP Family Medicine
DX: M54.12 Radiculopathy, cervical region (principal); I48.0 Paroxysmal atrial fibrillation; I12.9 Hypertensive chronic kidney disease with stage 1 through stage 4 chronic kidney disease, or unspecified chronic kidney disease; E11.22 Type 2 diabetes mellitus with diabetic chronic kidney disease; N18.2 Chronic kidney disease, stage 2 (mild); E11.39 Type 2 diabetes mellitus with other diabetic ophthalmic complication; H42 Glaucoma in diseases classified elsewhere; E78.2 Mixed hyperlipidemia; I08.2 Rheumatic disorders of both aortic and tricuspid valves; E55.9 Vitamin D deficiency, unspecified; M85.89 Other specified disorders of bone density and structure, multiple sites; M16.0 Bilateral primary osteoarthritis of hip; Z86.73 Personal history of transient ischemic attack (TIA), and cerebral infarction without residual deficits; Z87.440 Personal history of urinary (tract) infections; Z90.49 Acquired absence of other specified parts of digestive tract; Z90.710 Acquired absence of both cervix and uterus; Z79.82 Long term (current) use of aspirin; Z79.84 Long term (current) use of oral hypoglycemic drugs
CPT/HCPCS: 36415; 70496; 70498; 71045; 80053; 82948; 84484; 85025; 85610; 85730; 93005; 99284; Q9967

== ENCOUNTER 2024-04-22 21:30 | Inpatient (IN) | payer MEDICARE, SELFPAY ==
--- NOTE | ~2024-04-22 | XR_ITS ---
HISTORY: shoulder pain COMPARISON: Reference is made to a plain film evaluation of the chest dated 09/01/2023 TECHNIQUE: 3 views of the right shoulder were performed FINDINGS: Acute comminuted impacted fracture of the right humeral head and neck is identified. Diffuse bony demineralization is present. Significant degenerative disease is identified within the right acromioclavicular joint space with na rrowing and sclerosis. IMPRESSION: Acute comminuted impacted fracture of the right humeral head and neck is identified, as detailed kalie cueva. Reviewed, dictated and finalized at location A. IMPRESSION: Acute comminuted impacted fracture of the right humeral head and neck is identi fied, as detailed above.
--- NOTE | ~2024-04-22 | XR_ITS ---
EXAMINATION: XR foot RT min 3V DATE: 04/23/2024 15:16 INDICATION: Right foot injury and pain. TECHNIQUE: 3 views of right foot were obtained. COMPARISON: None. FINDINGS: Alignment is normal. No acute fracture. There is periosteal reaction of diaphysis of fourth metatarsal. There is mild osteoarthritis of some of the interphalangeal joints. There is mild osteoa rthritis of talonavicular joint. There is an enthesophyte of posterior aspect of calcaneal tuberosity . IMPRESSION: 1. Periosteal reaction of diaphysis of fourth metatarsal, which may be secondary to venous stasis or less likely a healing stress fracture. Reviewed, dictated and finalized at location A. IMPRESSION: 1. Periosteal reaction of diaphysis of fourth metatarsal, which may be secondar y to venous stasis or less likely a healing stress fracture.
--- NOTE | ~2024-04-22 | CT_ITS ---
Noncontrast CT scan of the right hip CLINICAL HISTORY: Fracture TECHNIQUE: Axial noncontrast imaging the right hip was performed. Sagittal and coronal reformatted im ages were constructed. Dose reduction technique was used on this scan by utilizing automated exposure control and iterative reconstruction technique. The dose-length product (DLP) was 217.20 mGy-cm. Findings: There is an acute intertrochanteric fracture of the proximal right femur with increased adi us attenuation of the major distal fracture fragment. There is comminution involving the greater troc hanter in particular. Fracture is minimally displaced otherwise. There is mild degenerative change of the right hip joint, with spurring at the superolateral acetabular margin. No significant joint effu arpit evident. No masslike hematoma evident. Visualized musculature grossly unremarkable for noncontrast CT. IMPRESSION: Acute intertrochanteric fracture of the proximal right femur, as detailed above. Reviewed, dictated and finalized at [facility]. IMPRESSION: Acute intertrochanteric fracture of the proximal right femur, as detailed above .
--- NOTE | ~2024-04-22 | XR_ITS ---
CHEST RADIOGRAPH CLINICAL HISTORY: weakness . COMPARISON: 09/01/2023 TECHNIQUE: Single portable view of the chest. FINDINGS The cardiomediastinal silhouette is unremarkable. Elevation of the right hemidiaphragm adjacent compressive atelectasis. The remainder the lungs are clear. Redemonstration of a right humeral head fracture, better evaluated on plain film evaluation of the [facility] IMPRESSION: Elevation of the right hemidiaphragm with adjacent compressive atelectasis. No focal infiltrate or effusion. Reviewed, dictated and finalized at location A.
--- NOTE | ~2024-04-22 | US_ITS ---
EXAMINATION: US venous doppler [facility] DATE: 04/27/2024 16:08 INDICATION: Left lower limb edema. TECHNIQUE: Grayscale ultrasound images without and with compression and Doppler ultrasound images of the left lower extremity veins were obtained. COMPARISON: None. FINDINGS: The visualized portions of left common femoral vein, profunda (deep) femoral vein, femoral vein, popl iteal vein, peroneal veins, posterior tibial veins, and greater saphenous vein outflow are patent. IMPRESSION: 1. No deep venous thrombosis. Reviewed, dictated and finalized at location A.
--- NOTE | ~2024-04-22 | CT_ITS ---
Noncontrast CT scan of the right shoulder Clinical history fracture TECHNIQUE: Axial noncontrast imaging of the right shoulder was performed. Sagittal and coronal reform atted images were reconstructed. Dose reduction technique was used on this scan by utilizing automate d exposure control and iterative reconstruction technique. The dose-length product (DLP) was 179.82 m Gy-cm. Findings: There is a comminuted, impacted fracture through the surgical neck of the proximal humerus. No dislocation evident. Fracture fragment are mildly displaced overall. There is associated small gl enohumeral joint effusion. No other fracture seen. Visualized musculature unremarkable. Visualized right lung clear. IMPRESSION: Comminuted, impacted fracture of the surgical neck of the proximal humerus. Reviewed, dictated and finalized at location .
--- NOTE | ~2024-04-22 | CT_ITS ---
CT head without contrast Indication: Trauma COMPARISON: 09/01/2023 Technique: Serial scans were obtained through the brain without the administration of contrast. Dose reduction technique was used on this scan by utilizing automated exposure control and iterative recon struction technique. The dose-length product (DLP) was 605.33 mGy-cm. Findings: There is no evidence of intracranial hemorrhage, mass lesion, or acute infarct. The ventri cles and subarachnoid spaces are dilated, consistent with mild to moderate atrophy. Low attenuation regions are seen within the periventricular white matter bilaterally, likely representing changes fro m chronic microvascular ischemic disease. There is no evidence of edema, mass effect or midline shif t. The visualized paranasal sinuses and mastoid air cells are clear. Impression: No intracranial hemorrhage, mass, or acute infarct. Atrophy and chronic white matter changes, as above. Reviewed, dictated and finalized at location M. Impression: No intracranial hemorrhage, mass, or acute infarct. Atrophy and chronic white matter changes, as above.
--- NOTE | ~2024-04-22 | US_ITS ---
EXAMINATION: US venous doppler LE RT DATE: 04/25/2024 11:38 INDICATION: Right lower limb swelling. TECHNIQUE: Grayscale ultrasound images without and with compression and Doppler ultrasound images of the right lower extremity veins were obtained. COMPARISON: None. FINDINGS: The visualized portions of right common femoral vein, profunda (deep) femoral vein, femoral vein, pop liteal vein, peroneal veins, posterior tibial veins, and greater saphenous vein outflow are patent. IMPRESSION: 1. No deep venous thrombosis. Reviewed, dictated and finalized at location A.
--- NOTE | ~2024-04-22 | XR_ITS ---
INTRAOPERATIVE FLUOROSCOPY: CLINICAL HISTORY: 89 years old Female; RT IT NAIL PROCEDURE COMMENTS: Limited intraoperative fluoroscopy of the right femur was performed. CUMULATIVE DOSE: 23 mGy FLUOROSCOPY TIME: 98 seconds FINDINGS/IMPRESSION: Please refer to operative note for further details. Reviewed, dictated and finalized at location A.
--- NOTE | ~2024-04-22 | XR_ITS ---
HISTORY: right hip pain after fall COMPARISON: None TECHNIQUE: 2 views of the right hip and a single frontal view of the pelvis were performed. FINDINGS: A comminuted right intertrochanteric fracture is identified with override of the fracture fragment/fe moral shaft. The left hip is unremarkable. No additional fractures are identified. IMPRESSION: Comminuted right intertrochanteric fracture with varus deformity. Reviewed, dictated and finalized at location A.
[2024-04-22 21:13] VITALS: BP 152/49; PULSE 77; RESP 16; TEMP 36.7; O2SAT 94
--- NOTE | 2024-04-22 21:35 | ECG_ITS ---
Test Date: 2024-04-22 21:38:01 Measurements Intervals [place] Rate: 90 P: 0 [place]: 0 QRS: -33 QRSD: 81 T: 71 QT: 358 QTc: 438 Interpretive Statements ATRIAL FIBRILLATION LEFT AXIS DEVIATION [QRS AXIS < -30] NONSPECIFIC ST & T-WAVE ABNORMALITY ABNORMAL ECG No previous ECG available for comparison Electronically Signed On 04-23-2024 07:56:43 CDT by Luc Jeronimo M.D.
--- NOTE | 2024-04-22 21:41 | ED.FALL ---
HPI - Fall General Chief Complaint: Fall Stated Complaint: fall - r shoulder/leg pain History of Present Illness HPI Narrative: 89-year-old female presenting to the emergency department for evaluation after having a ground level fall. Patient does live at home on her own. Patient states that she had been sitting outside reading and she walked inside and during the process of walking inside she fell and injured her right shoulder and right hip. Patient does not think she struck her head but denies any loss of consciousness. Patient has limited range of motion of the right shoulder and right hip secondary to pain. 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 Related Data Home Medications Medication Instructions Recorded Confirmed latanoprost 0.005 % eye drops 1 drop ophthalmic (eye) DAILY 12/01/19 01/29/24 B Complex-Vitamin B12 1 tablet PO DAILY 07/21/21 01/29/24 PreserVision AREDS-2 1 tablet PO BID 07/21/21 01/29/24 aspirin 81 mg tablet,delayed 81 mg PO DAILY 11/12/22 01/29/24 release (Adult Aspirin Regimen) Allergies Allergy/AdvReac Type Severity Reaction Status Date / Time No Known Drug Allergies Allergy Unknown Verified 01/29/24 13:54 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 Essential (primary) hypertension Generalized anxiety disorder Glaucoma Hypertension Hypomagnesemia Lumbar spondylosis MCI (mild cognitive impairment) Mixed hyperlipidemia Mixed hyperlipidemia Osteopenia Osteopenia of multiple sites Paroxysmal atrial fibrillation Transient ischemic attack Tricuspid regurgitation Tricuspid valve regurgitation, secondary Type 2 diabetes mellitus with diabetic chronic kidney disease Urinary tract infection Vertigo Vitamin D deficiency Surgical History Surgical History History of appendectomy History of cholecystectomy History of enucleation of right eyeball History of total hysterectomy Family History Family History Mother Patient's mother is Carcinoma of colon Father Patient's father is Sibling Patient's sister is in good health Patient's brother is Carcinoma of esophagus Lymphoma Social History Social History (Updated 04/23/24 @ 03:41 by Giovanna Ann) Social History: The patient is and lives in her own home In [place]. She is a lifelong nonsmoker. No alcohol or illicit substance abuse. She designates her daughter Lizzette as her surrogate decision maker and she wishes to be a full code. Smoking status: Never smoker Second hand tobacco smoke exposure: Yes Alcohol intake: never Substance use: never Substance use type: does not use Do You Feel Safe in your Home?: Yes Lack of Transportation: No Lack of Food: Never True Current Housing: I Have Housing Concerned About Future Housing: No Difficulty Paying Gas/Electric Bills: No Difficulty Paying for Meds: No Currently Unemployed: No Education: Don't Know Difficulty w/ Childcare or Family Care: No Living arrangements: alone Occupation/Education: retired Gender identity (if verbalized by the patient): Female Sexual Orientation (if Verbalized by the Patient): Straight or Heterosexual Spiritual care concerns: No Exam Narrative: APPEARANCE: Well appearing, no pain, no distress, well-nourished. HEAD: normocephalic, atraumatic. EYES: PERRLA/EOMI, conjunctivae clear. NO
[2024-04-22 21:58] LABS: Hematocrit 38.7 % (37.0-47.0); Hemoglobin 12.9 g/dL (12.0-15.0); Mean Corpuscular HGB Conc 33.3 g/dl (32-36); Mean Corpuscular Hemoglobin 31.7 pg (26-34); Mean Corpuscular Volume 95.1 fl (80-100); Platelet Count Result 171 k/mm3 (150-375); Red Blood Count 4.07 M/mm3 (4.2-5.4); Red Cell Distribution Width 13.6 % (11.5-14.5); White Blood Count 20.7 K/mm3 (4.5-10.0)
[2024-04-22 22:00] VITALS: PULSE 83; RESP 26; O2SAT 99
[2024-04-22 22:08] LABS: Add Urine Microscopic? YES; Appearance Urine Clear (Clear); Bacteria Urine 4+ /hpf; Bilirubin Urine Negative (Negative); Blood Urine Negative (Negative); Color Urine Yellow (Yellow); Glucose Urine UA Negative (Negative); Ketones Urine Negative (Negative); Leukocyte Esterase Ur Trace LEU/UL (Negative); Nitrate Urine Negative (Negative); Non Pathogenic Casts 0-2; Protein Urine 2+ mg/dL (Negative); RBC Urine 0-2 /hpf (0-2); Specific Grav Ur 1.012 (1.001-1.035); Squamous Epithelial Cell Urine None Seen /hpf (Few); Urobilinogen Urine 0.2 mg/dL (<2.0)
[2024-04-22 22:09] LABS: Alanine Aminotransferase 18 U/L (6-35); Albumin Level 4.4 g/dL (3.5-5.1); Alkaline Phosphatase 75 U/L (38-126); Anion Gap 11 mmol/L (4-12); Aspartate Amino Transferase 27 U/L (14-36); Blood Urea Nitrogen 23 mg/dL (7-17); Calcium 9.4 mg/dL (8.4-10.2); Carbon Dioxide 24 mmol/L (22-30); Chloride 104 mmol/L (98-107); Estimated CRCL calculation 34 ml/min; Estimated Glomerular Filt Rate 52; Glucose 269 mg/dL (65-110); Potassium 3.9 mmol/L (3.4-5.0); Sodium 139 mmol/L (137-145)
[2024-04-22 22:16] LABS: Band Neutrophils Percent 2 % (0-6); Lymphocytes Absolute Manual 6.21 K/mm3 (1.1-4.5); Monocytes Absolute Manual 1.24 K/mm3 (0.1-0.90); Monocytes Percent Manual 6 % (3-9); Neutrophils Absolute Manual 13.24 K/mm3 (1.7-7.2); Neutrophils Percent Manual 62 % (46-73); Platelet Estimate Adequate (Adequate); Schistocytes None Seen; Total Cells Counted 100
[2024-04-22 23:16] VITALS: BP 138/56; PULSE 79; RESP 20; O2SAT 96
--- NOTE | 2024-04-22 23:23 | PM.IMHP ---
H&P: HPI History of Present Illness Date/Time: 04/22/24 23:23 Chief Complaint: fall Narrative: This is an 89-year-old female with past medical history significant for hypertension, diabetes mellitus, GERD. patient presents to the emergency room due to having a fall mechanical to ground level. patient denies any loss of consciousness, Patient denies fevers, rigors, chills, nausea, vomiting, diarrhea, pain or burning with urination, no cough, no sputum production, has been in her usual state of health up until this point. Preliminary workup was significant for Right intertrochanteric hip fracture. A urinalysis was significant for numerous WBCs present. CHEST RADIOGRAPH CLINICAL HISTORY: weakness . COMPARISON: 09/01/2023 TECHNIQUE: Single portable view of the chest. FINDINGS The cardiomediastinal silhouette is unremarkable. Elevation of the right hemidiaphragm adjacent compressive atelectasis. The remainder the lungs are clear. Redemonstration of a right humeral head fracture, better evaluated on plain film evaluation of the shoulder IMPRESSION: Elevation of the right hemidiaphragm with adjacent compressive atelectasis. No focal infiltrate or effusion. HISTORY: shoulder pain COMPARISON: Reference is made to a plain film evaluation of the chest dated 09/01/2023 TECHNIQUE: 3 views of the right shoulder were performed FINDINGS: Acute comminuted impacted fracture of the right humeral head and neck is identified. Diffuse bony demineralization is present. Significant degenerative disease is identified within the right acromioclavicular joint space with narrowing and sclerosis. IMPRESSION: Acute comminuted impacted fracture of the right humeral head and neck is identified, as detailed above. HISTORY: right hip pain after fall COMPARISON: None TECHNIQUE: 2 views of the right hip and a single frontal view of the pelvis were performed. FINDINGS: A comminuted right intertrochanteric fracture is identified with override of the fracture fragment/femoral shaft. The left hip is unremarkable. No additional fractures are identified. IMPRESSION: Comminuted right intertrochanteric fracture with varus deformity. 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 Essential (primary) hypertension Generalized anxiety disorder Glaucoma Hypertension Hypomagnesemia Lumbar spondylosis MCI (mild cognitive impairment) Mixed hyperlipidemia Mixed hyperlipidemia Osteopenia Osteopenia of multiple sites Paroxysmal atrial fibrillation Transient ischemic attack Tricuspid regurgitation Tricuspid valve regurgitation, secondary Type 2 diabetes mellitus with diabetic chronic kidney disease Urinary tract infection Vertigo Vitamin D deficiency Surgical History Surgical History History of appendectomy History of cholecystectomy History of enucleation of right eyeball History of total hysterectomy Family History Family History Mother Patient's mother is Carcinoma of colon Father Patient's father is Sibling Patient's sister is in good health Patient's brother is Carcinoma of esophagus Lymphoma Social History Social History (Updated 04/23/24 @ 03:41 by Giovanna Ann) Social History: The patient is and lives in her own home In [place]. She is a lifelong nonsmoker. No alcohol or illicit substance abuse. She designates her daughter Lizzette as her surrogate decision maker and she wishes to be a full code. Kalen
[2024-04-22 23:30] VITALS: PULSE 76; RESP 22; O2SAT 95
[2024-04-22 23:31] VITALS: BP 151/59
[2024-04-22 23:56] VITALS: PULSE 85; RESP 13; O2SAT 96
[2024-04-23] VITALS (21 sets, daily range): BP systolic 121–151; BP diastolic 45–105; PULSE 55–99; RESP 10–26; TEMP 36.3–37.3; O2SAT 92–100; BMI 27.5
[2024-04-23] MEDS: SODIUM CHLORIDE 0.9% IV 1,000 ML 125 ML IV CONT ×3 (00:01→17:00)
[2024-04-23] MEDS: MORPHINE SULFATE (*CRX) 2 MG/ML INJ IV PUSH ×2 (00:02→08:39)
[2024-04-23] MEDS: ONDANSETRON INJ 4 MG/2 ML VIAL IV PUSH ×2 (00:02→21:16)
--- NOTE | 2024-04-23 00:15 | PC.NURSE ---
blood cultures drawn via kurin device and label placed in bio bag with cultures. tubed to lab.
--- NOTE | 2024-04-23 03:44 | ADMGEN ---
This patient, Betsy Frost, was admitted to 3 [facility] Surg Room 314-02 at 0210. Patient/family oriented to hospital policies and general routines including ID bracelet, bed and alarms, visiting hours, pain management, procedures, bathroom and other care routines, personal items, smoking policy, room service/diet, and visiting hours. Information on how to activate the Rapid Response Team has been discussed. Patient/Family are encouraged to report perceived risks to care and to ask questions if they do not understand what they are told or what they should do.
--- NOTE | 2024-04-23 04:03 | PC.NURSE ---
Current DNR form placed in chart
--- NOTE | 2024-04-23 04:05 | PC.NURSE ---
This RN completed the admission, with the help of the patient and prior information in the computer. Medications not up to date on external med list and patient unable to tell what medications she takes.
--- NOTE | 2024-04-23 07:06 | PC.NURSE ---
Call placed to patient's daughter, Lizzette, who does not know what meds the patient takes, and does not have a medication list. Lizzette states that her mom probably has a list of her medications at her house somewhere, and states that she is sending her over to patient's house to look for it. Lizzette & will call back with the list, or bring it up in person.
--- NOTE | 2024-04-23 07:16 | PM.CNOR ---
Assessment and Plan Assessment and plan (1) Fracture, humerus closed: Code(s): S42.309A - Unspecified fracture of shaft of humerus, unspecified arm, initial encounter for closed fracture Status: Acute (2) Closed hip fracture: Code(s): S72.009A - Fracture of unspecified part of neck of unspecified femur, initial encounter for closed fracture Status: Acute Assessment and Plan: 89-year-old female who has right proximal humerus fracture as well a displaced right intertrochanteric hip fracture. Shoulder fracture will be treated nonsurgically with immobilization. The hip fracture will be treated with ORIF to be done later today. Patient is NPO. I did discuss with the patient the possible need for transfusion postoperatively and she is aware of that. Hemoglobin was normal upon admission. Other admission labs were noted. I have ordered a vitamin-D 25 hydroxy. I will consult care coordination, patient will need rehab facility postoperatively past as well. Dr. Maravilla will see the patient before surgery to review the surgical risks and complications. I did discuss these with patient this morning. History of Present Illness HPI Consult date: 04/23/24 Chief complaint: UTI/Humerus Fracture/Femur Fracture Narrative: 89-year-old female who fell yesterday at home. She was started back porch when she went inside lost balance and fell hard floor. EMS prior to the ER. Two part right proximal humerus fracture as well as a displaced right intertrochanteric hip the fractures. She was placed into a shoulder immobilizer for her proximal humerus fracture. Her hip fracture with ORIF hopefully today. Patient is a past medical history of diabetes as well as hypertension. Her home meds were reviewed is taking baby aspirin daily. Patient states history that she can remember. There is no history of stent bypass surgeries. Patient was found to have a UTI on admission, cultures are pending. A Thomas catheter was placed. 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 Essential (primary) hypertension Generalized anxiety disorder Glaucoma Hypertension Hypomagnesemia Lumbar spondylosis MCI (mild cognitive impairment) Mixed hyperlipidemia Mixed hyperlipidemia Osteopenia Osteopenia of multiple sites Paroxysmal atrial fibrillation Transient ischemic attack Tricuspid regurgitation Tricuspid valve regurgitation, secondary Type 2 diabetes mellitus with diabetic chronic kidney disease Urinary tract infection Vertigo Vitamin D deficiency Surgical History Surgical History History of appendectomy History of cholecystectomy History of enucleation of right eyeball History of total hysterectomy Family History Family History Mother Patient's mother is Carcinoma of colon Father Patient's father is Sibling Patient's sister is in good health Patient's brother is Carcinoma of esophagus Lymphoma Social History Social History (Updated 04/23/24 @ 03:41 by Giovanna Ann) Social History: The patient is and lives in her own home In [place]. She is a lifelong nonsmoker. No alcohol or illicit substance abuse. She designates her daughter Lizzette as her surrogate decision maker and she wishes to be a full code. Smoking status: Never smoker Second hand tobacco smoke exposure: Yes Alcohol intake: never Substance use: ne
[2024-04-23 08:39] LABS: Vitamin D 25 Hydroxy 57.1 ng/mL
[2024-04-23] MEDS: VANCOMYCIN 1,000 MG/NS 250 ML BAG 250 MG IVPB (11:31)
[2024-04-23 12:19] LABS: Glucose Point of Care 131 mg/dl (65-105)
[2024-04-23] MEDS: TRANEXAMIC ACID 1,000MG/ISO100 1,000 MG/100 ML BAG 200 MG IVPB (12:34)
--- NOTE | 2024-04-23 12:49 | WPDANESEPPF ---
Anes - Initial Pre Proc Eval Procedure: Operation Date: 04/23/24 13:30 Proposed Procedures p Right Intertrochanteric Nail - Remy Maravilla MD Date/Time: 04/23/24 12:49 Surgeon: Alcira Hemphill MD Pre Op Diagnosis: UTI/Humerus Fracture/Femur Fracture Patient Data Age: 89 Gender: F Height: 1.63 m Weight: 72.7 kg Last Vital Signs Temp 36.3 C L 04/23/24 05:48 Pulse 73 04/23/24 05:48 Resp 18 04/23/24 05:48 BP 148/45 H 04/23/24 05:48 Pulse Ox 94 04/23/24 08:23 O2 Del Method Room Air 04/23/24 08:23 Allergies Allergy/AdvReac Type Severity Reaction Status Date / Time No Known Drug Allergies Allergy Unknown Verified 04/23/24 12:50 Home Medications Medication Instructions Recorded Confirmed Type latanoprost 0.005 % eye drops 1 drop ophthalmic (eye) QHS 12/01/19 04/23/24 History blood-glucose meter #1 ea 12/08/20 04/23/24 Rx blood sugar diagnostic (OneTouch #100 strips 07/03/23 04/23/24 Rx Ultra Test strips) lancets 33 gauge (OneTouch Delica #200 ea 10/07/23 04/23/24 Rx Plus Lancet) aspirin 325 mg tablet 325 mg PO DAILY 04/23/24 04/23/24 History glipizide 2.5 mg tablet, extended 2.5 mg PO DAILY 04/23/24 04/23/24 History release 24 hr hydrochlorothiazide 25 mg tablet 25 mg PO DAILY 04/23/24 04/23/24 History lisinopril 20 mg tablet 40 mg PO DAILY 04/23/24 04/23/24 History metformin 500 mg tablet 500 mg PO BID 04/23/24 04/23/24 History metoprolol tartrate 25 mg tablet 25 mg PO BID 04/23/24 04/23/24 History omeprazole 20 mg capsule,delayed 20 mg PO BID 04/23/24 04/23/24 History release simvastatin 20 mg tablet 20 mg PO QHS 04/23/24 04/23/24 History vit C 250 mg-vit E 90 mg-zinc 40 1 tablet PO BID 04/23/24 04/23/24 History mg-copper 1 [id number] capsule (PreserVision AREDS-2) vitamin B complex 1 tablet PO DAILY 04/23/24 04/23/24 History Laboratory Tests 04/22/24 04/22/24 04/22/24 21:51 21:52 21:53 WBC 20.7 H K/mm3 (4.5-10.0) RBC 4.07 L M/mm3 (4.2-5.4) Hgb 12.9 g/dL (12.0-15.0) Hct 38.7 % (37.0-47.0) MCV 95.1 fl (80-100) MCH 31.7 pg (26-34) MCHC 33.3 g/dl (32-36) RDW 13.6 % (11.5-14.5) Plt Count 171 k/mm3 (150-375) MPV 11.0 H fl (7.4-10.4) Immature Gran % (Auto) Not Reportable Neut % (Auto) Not Reportable Lymph % (Auto) Not Reportable [place] % (Auto) Not Reportable Eos % (Auto) Not Reportable Baso % (Auto) Not Reportable Lymph # (Auto) Not Reportable [place] # (Auto) Not Reportable Eos # (Auto) Not Reportable Baso # (Auto) Not Reportable Abs Immat Gran (auto) Not Reportable Absolute Neuts (auto) Not Reportable Absolute Nucleated RBC Not Reportable Total Counted 100 Neutrophils % (Manual) 62 % (46-73) Band Neutrophils % 2 % (0-6) Lymphocytes % (Manual) 30.0 % (18-44) Monocytes % (Manual) 6 % (3-9) Nucleated RBC % Not Reportable Abs Neuts (Manual) 13.24 H K/mm3 (1.7-7.2) Abs Lymphs (Manual) 6.21 H K/mm3 (1.1-4.5) Abs Monocytes (Manual) 1.24 H K/mm3 (0.1-0.90) Platelet Estimate Adequate (Adequate) Schistocytes None seen Sodium 139 mmol/L (137-145) Potassium 3.9 mmol/L (3.4-5.0) Chloride 104 mmol/L (98-107) Carbon Dioxide 24 mmol/L (22-30) Anion Gap 11 mmol/L (4-12) BUN 23 H D mg/dL (7-17) Creatinine 1.00 mg/dL (0.7-1.0) Estim Creat Clear Calc 34 ml/min Estimated GFR 52 L (59 - ) Glucose 269 H mg/dL (65-110) POC Capillary Glucose Calcium 9.4 mg/dL (8.4-10.2) Total Bilirubin 1.0 mg/dL (0.2-1.3) AST 27 U/L
[2024-04-23] MEDS: LACTATED RINGERS 1,000 ML 30 ML IV CONT ×2 (13:15→15:02)
--- NOTE | 2024-04-23 13:20 | WPDHPUPDATE1 ---
History and Physical Update Update Date/Time: 04/23/24 13:20 History and Physical has been reviewed, including an updated exam of the patient. There are NO changes in the patient's condition. Risks, benefits, and alternatives have been discussed and questions answered. Patient agrees to proceed with procedure.
[2024-04-23] MEDS: ceFAZolin 2 GM/D5W 50 ML 2 GM/50 ML BAG IVPB ×2 (13:38→21:18)
[2024-04-23] MEDS: ceFAZolin SODIUM 1 GM VIAL (13:38)
--- NOTE | 2024-04-23 15:10 | P.OP_ITS ---
Procedure Note - Detailed Date of Procedure 04/23/24 Pre-op Diagnosis UTI/Humerus Fracture/Femur Fracture Post-op Diagnosis Same Procedure Performed Open reduction internal fixation right intertrochanteric hip fracture Arthrex he has trochanteric nail device Surgeon Remy Maravilla MD [employer] Agent Ovidio Hernandez PA-C Anesthesia General Description of Procedure Patient was brought to the operating room and general anesthesia was administered. She was carefully moved over the fracture table. The right arm was secured in the shoulder immobilizer and was protected during the procedure. The right foot was placed after application of padding in the traction boot the left hip flexed and abducted out of the way. We scrubbed the right hip and lateral thigh with a chlorhexidine clot. We brought in fluoro and x-rays with traction in mild internal rotation showed very good alignment with no residual significant displacement. The right hip and thigh were prepped with DuraPrep and covered with the [place] shower curtain. She received 2 g Ancef weight based vancomycin 1 g of TXA preoperatively. A 2 in longitudinal incision was made proximal to greater trochanter. A guide pin was inserted into the tip of the greater trochanter and into the canal and position confirmed fluoroscopically. The starter Reamer was used. A 16.5 mm Reamer was then introduced and brought to the appropriate depth for the proximal part of the nail. The canal was reamed to 12 mm which started to get just a little bit of chatter and we chose the 10 mm diameter 33 cm long 125 degree Arthrex right ES nail which was inserted under manual pressure to the appropriate depth. A guide pin was inserted into the center of the femoral head on the AP and lateral views. This was reamed and a 95 mm telescoping lag screw was chosen and inserted to about 7 mm from subchondral bone and after confirming fracture alignment on the AP and lateral views the telescoping lag screw was locked to the cristino and the activation screw removed to allow collapse. A single screw was placed into the mid shaft through the interlocking screw hole in the mid cristion. Final fluoroscopic x-rays confirmed appropriate position of the hardware and maintenance of essentially anatomic alignment of the fracture. The wounds were irrigated with Ancef solution. The proximal incision was closed with 0 Vicryl and 2-0 Vicryl and glue the other incisions with 2-0 Vicryl and glue. EBL was about 100 cc. There were no complications she was transferred postop recovery room in stable condition. [facility] Billing Surgery - Charge Forward: Surgery Billing (Open reduction internal fixation of right intertrochanteric hip fracture.)
--- NOTE | 2024-04-23 15:15 | PM.OP ---
Procedure Note - Brief Procedure Note - Brief Date of procedure: 04/23/24 UTI/Humerus Fracture/Femur Fracture Procedure performed: ORIF of right intertrochanteric hip fracture Surgeon: SAMIA Alicea Findings: 89-year-old female who underwent ORIF of her right intertrochanteric hip fracture on 04/23. I was involved in the procedure including positioning the patient on the OR table in 1st assisting through the time of surgery. Total time spent was 2 hours
[2024-04-23] MEDS: fentaNYL CITRATE INJ (*CRX) 100 MCG/2 ML VIAL 25 MCG IV PUSH ×4 (15:20→15:35)
[2024-04-23 16:00] LABS: Glucose Point of Care 162 mg/dl (65-105)
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
[2024-04-23] MEDS: SENNA/DOCUSATE SODIUM TABLET 2 TAB PO (17:02)
[2024-04-23] MEDS: ACETAMINOPHEN 325 MG TABLET 650 MG PO (17:02)
[2024-04-23] MEDS: oxyCODONE HCL (*CRX) 2.5 MG TAB IR PO ×2 (17:02→21:16)
[2024-04-23] MEDS: metFORMIN HCL 500 MG TABLET PO (17:03)
[2024-04-23] MEDS: OPTI-GEN TAB 1 TABLET PO (17:03)
[2024-04-23] MEDS: PANTOPRAZOLE 40 MG TABLET PO (17:03)
[2024-04-23 21:11] LABS: Glucose Point of Care 191 mg/dl (65-105)
[2024-04-23] MEDS: FAMOTIDINE 20 MG TABLET PO (21:15)
[2024-04-23] MEDS: METOPROLOL TARTRATE 25 MG TABLET PO (21:15)
[2024-04-23] MEDS: SIMVASTATIN 20 MG TABLET PO (21:16)
[2024-04-23] MEDS: LATANOPROST 0.005% OP SOLN 2.5 ML BTL 1 DROP EACH EYE (21:18)
[2024-04-24] VITALS (16 sets, daily range): BP systolic 114–153; BP diastolic 43–71; PULSE 36–77; RESP 14–18; TEMP 36.3–37.2; O2SAT 92–99
[2024-04-24] MEDS: ACETAMINOPHEN 325 MG TABLET 650 MG PO ×5 (00:30→23:55)
[2024-04-24] MEDS: SODIUM CHLORIDE 0.9% IV 1,000 ML 125 ML IV CONT ×3 (00:32→23:55)
[2024-04-24] MEDS: oxyCODONE HCL (*CRX) 2.5 MG TAB IR PO ×5 (05:22→21:22)
[2024-04-24] MEDS: ceFAZolin 2 GM/D5W 50 ML 2 GM/50 ML BAG IVPB ×2 (05:22→13:10)
[2024-04-24 06:36] LABS: Anion Gap 7 mmol/L (4-12); Blood Urea Nitrogen 19 mg/dL (7-17); Carbon Dioxide 24 mmol/L (22-30); Chloride 107 mmol/L (98-107); Estimated CRCL calculation 34 ml/min; Estimated Glomerular Filt Rate 52; Glucose 143 mg/dL (65-110); Potassium 4.2 mmol/L (3.4-5.0); Sodium 138 mmol/L (137-145)
[2024-04-24 07:45] LABS: Basophils Percent Auto 0.3 % (0.2-1.2); Eosinophils Absolute Auto 0.1 K/mm3 (0-0.3); Eosinophils Percent Auto 0.5 % (0-4.4); Hemoglobin 8.7 g/dL (12.0-15.0); Immature Granulocyte Absolute 0.08 K/mm3 (0.00-0.031); Immature Granulocyte Percent A 0.7 % (0-0.5); Immature Platelet Fraction Pct 5.3 % (0.9-11.2); Lymphocytes Absolute Auto 3.26 K/mm3 (0.9-3.2); Lymphocytes Percent Auto 28.2 % (18.3-44.2); Mean Corpuscular HGB Conc 32.2 g/dl (32-36); Mean Corpuscular Hemoglobin 31.9 pg (26-34); Mean Corpuscular Volume 98.9 fl (80-100); Mean Platelet Volume 11.4 fl (7.4-10.4); Monocytes Absolute Auto 0.6 K/mm3 (0.1-0.6); Monocytes Percent Auto 4.8 % (2.6-8.5); Neutrophils Absolute Auto 7.6 K/mm3 (1.3-6.7); Neutrophils Percent Auto 65.5 % (45.5-73.1); Platelet Count Result 93 k/mm3 (150-375); Red Blood Count 2.73 M/mm3 (4.2-5.4); White Blood Count 11.6 K/mm3 (4.5-10.0)
[2024-04-24 07:54] LABS: Glucose Point of Care 146 mg/dl (65-105)
[2024-04-24 08:03] LABS: Platelet Estimate Decreased (Adequate)
[2024-04-24 08:04] LABS: Hypochromasia 1+; Schistocytes None Seen
[2024-04-24] MEDS: ASPIRIN 325 MG TABLET PO (09:25)
[2024-04-24] MEDS: SENNA/DOCUSATE SODIUM TABLET 2 TAB PO ×2 (09:25→17:21)
[2024-04-24] MEDS: FAMOTIDINE 20 MG TABLET PO ×2 (09:26→21:22)
[2024-04-24] MEDS: lisinopriL 20 MG TABLET 40 MG PO (09:26)
[2024-04-24] MEDS: PANTOPRAZOLE 40 MG TABLET PO ×2 (09:26→17:21)
[2024-04-24] MEDS: metFORMIN HCL 500 MG TABLET PO ×2 (09:26→17:20)
[2024-04-24] MEDS: VITAMIN B COMPLEX CAPSULE 1 CAP PO (09:26)
[2024-04-24] MEDS: OPTI-GEN TAB 1 TABLET PO ×2 (09:26→17:21)
[2024-04-24] MEDS: ENOXAPARIN 40 MG/0.4 ML SYRINGE SUB-Q (09:26)
[2024-04-24] MEDS: polyethylene glycoL 3350 17 GM POWD.PACK PO (09:27)
[2024-04-24] MEDS: hydroCHLOROthiazide 25 MG TABLET PO (09:32)
[2024-04-24] MEDS: METOPROLOL TARTRATE 25 MG TABLET PO ×2 (09:32→21:22)
[2024-04-24] MEDS: VANCOMYCIN 1,000 MG/NS 250 ML 1,000 MG/250 ML BAG 250 MG IVPB (09:55)
--- NOTE | 2024-04-24 10:58 | WPDANESPN ---
Anes - Prog Note Post-Op Date/Time: 04/24/24 10:58 Cardiovascular status: other (anemia) Respiratory status: normal Airway patency: baseline Mental status: baseline Post-Op hydration status: normal Vital Signs: Last Vital Signs Temp 36.3 C L 04/24/24 04:26 Pulse 77 04/24/24 09:32 Resp 16 04/24/24 09:31 BP 153/52 H 04/24/24 09:31 Pulse Ox 94 04/24/24 09:31 O2 Del Method Nasal Cannula 04/24/24 08:50 O2 Flow Rate 2 04/24/24 08:50 Pain Score (VAS): 10/22 I/O: Intake & Output 04/23/24 04/24/24 04/24/24 23:59 07:59 15:59 Intake Total 830 1141.7 Output Total 300 200 Balance 530 941.7 Laboratory Tests 04/24/24 07:13 04/24/24 06:10 04/23/24 04/23/24 04/23/24 12:17 13:34 15:56 WBC RBC Hgb Hct MCV MCH MCHC RDW Plt Count MPV Immature Gran % (Auto) Neut % (Auto) Lymph % (Auto) [place] % (Auto) Eos % (Auto) Baso % (Auto) Lymph # (Auto) [place] # (Auto) Eos # (Auto) Baso # (Auto) Abs Immat Gran (auto) Absolute Neuts (auto) Absolute Nucleated RBC Nucleated RBC % Platelet Estimate % Immature Plt Fraction Hypochromasia Schistocytes Sodium Potassium Chloride Carbon Dioxide Anion Gap BUN Creatinine Estim Creat Clear Calc Estimated GFR Glucose POC Capillary Glucose 131 H 162 H Calcium Blood Type A Negative Antibody Screen Positive Antibody Identification Anti-D Antigen Identification Cancelled VIOLET, IgG Interpret Neg VIOLET, Poly Interpret Not Performed VIOLET, Complement Interp Negative 04/23/24 04/24/24 04/24/24 21:05 06:10 07:13 WBC 11.6 H RBC 2.73 L Hgb 8.7 L D Hct 27.0 L MCV 98.9 MCH 31.9 MCHC 32.2 RDW 14.0 Plt Count 93 L MPV 11.4 H Immature Gran % (Auto) 0.7 H Neut % (Auto) 65.5 Lymph % (Auto) 28.2 [place] % (Auto) 4.8 Eos % (Auto) 0.5 Baso % (Auto) 0.3 Lymph # (Auto) 3.26 H [place] # (Auto) 0.6 Eos # (Auto) 0.1 Baso # (Auto) 0.0 Abs Immat Gran (auto) 0.08 H Absolute Neuts (auto) 7.6 H Absolute Nucleated RBC 0.000 Nucleated RBC % 0.0 Platelet Estimate Decreased % Immature Plt Fraction 5.3 Hypochromasia 1+ Schistocytes None seen Sodium 138 Potassium 4.2 Chloride 107 Carbon Dioxide 24 Anion Gap 7 BUN 19 H Creatinine 1.00 Estim Creat Clear Calc 34 Estimated GFR 52 L Glucose 143 H POC Capillary Glucose 191 H Calcium 8.0 L Blood Type Antibody Screen Antibody Identification Antigen Identification VIOLET, IgG Interpret VIOLET, Poly Interpret VIOLET, Complement Interp 04/24/24 07:45 WBC RBC Hgb Hct MCV MCH MCHC RDW Plt Count MPV Immature Gran % (Auto) Neut % (Auto) Lymph % (Auto) [place] % (Auto) Eos % (Auto) Baso % (Auto) Lymph # (Auto) [place] # (Auto) Eos # (Auto) Baso # (Auto) Abs Immat Gran (auto) Absolute Neuts (auto) Absolute Nucleated RBC Nucleated RBC % Platelet Estimate % Immature Plt Fraction Hypochromasia Schistocytes Sodium Potassium Chloride Carbon Dioxide Anion Gap BUN Creatinine Estim Creat Clear Calc Estimated GFR Glucose POC Capillary Glucose 146 H Calcium Blood Type Antibody Screen Antibody Identification Antigen Identification VIOLET, IgG Interpret VIOLET, Poly Interpret VIOLET, Complement Interp Microbiology 04/23/24 00:18 Blood Blood Culture - Preliminary 04/23/24 00:18 Blood Blood Culture - Preliminary 04/22/24 21:53 Urine Catheterized Urine Culture - Preliminary Escherichia Coli Post-procedural complaints: none Patient Feedback: Patient satisfied with anesthetic care.
--- NOTE | 2024-04-24 11:21 | PM.PNORT ---
Subjective Subjective Date/Time Seen: 04/24/24 11:21 Interval history: Postop day 1 patient is resting comfortably. Shoulder immobilizer is in place. Dressings are dry and intact on her right thigh. Pain overall is tolerable. Morning labs were noted. Hemoglobin has dropped to 8.9 and platelets were 93,000. Patient has polytrauma, blood loss is going to be from the shoulder fracture as well as the hip fracture. She is on Lovenox for DVT prophylaxis. We will monitor her hemoglobin and platelets over the course the next day or 2. Patient did not receive any Lovenox prior to labs this morning. She may require transfusion if her hemoglobin continues to full. Care coordination has been consulted for rehab placement. Objective Data Vital Signs Vital Signs: Vital Signs - 24 hr 04/23/24 13:10 04/23/24 15:02 04/23/24 15:20 Temperature 99.1 F 97.7 F Pulse Rate 83 55 L 72 Respiratory Rate 18 14 10 L Blood Pressure 140/51 L 144/67 H 121/105 H Pulse Oximetry 95 97 100 Oxygen Delivery Room Air Simple Face Mask Simple Face Mask Oxygen Flow Rate 8 8 04/23/24 15:35 04/23/24 15:50 04/23/24 16:04 Temperature 97.6 F Pulse Rate 77 82 78 Respiratory Rate 10 L 10 L 10 L Blood Pressure 137/57 L 141/53 H 133/79 Pulse Oximetry 100 97 97 Oxygen Delivery Simple Face Mask Nasal Cannula Nasal Cannula Oxygen Flow Rate 8 2 2 04/23/24 17:14 04/23/24 18:14 04/23/24 20:01 Temperature 97.5 F L 97.5 F L 97.6 F Pulse Rate 99 93 92 Respiratory Rate 18 20 12 Blood Pressure 151/69 H 130/66 134/66 Pulse Oximetry 97 97 100 Oxygen Delivery Oxygen Flow Rate 04/23/24 21:15 04/23/24 20:00 04/24/24 00:15 Temperature 97.6 F Pulse Rate 81 36 L Respiratory Rate 16 Blood Pressure 122/54 L Pulse Oximetry 100 99 Oxygen Delivery Nasal Cannula Oxygen Flow Rate 2 04/24/24 00:00 04/23/24 20:00 04/24/24 00:00 Temperature Pulse Rate 81 64 Respiratory Rate Blood Pressure Pulse Oximetry 92 Oxygen Delivery Nasal Cannula Oxygen Flow Rate 1 04/24/24 04:00 04/24/24 04:26 04/24/24 08:50 Temperature 97.4 F L Pulse Rate 63 58 L Respiratory Rate 14 Blood Pressure 124/45 L Pulse Oximetry 98 Oxygen Delivery Nasal Cannula Oxygen Flow Rate 2 04/24/24 09:31 04/24/24 09:32 Temperature Pulse Rate 76 77 Respiratory Rate 16 Blood Pressure 153/52 H Pulse Oximetry 94 Oxygen Delivery Oxygen Flow Rate Intake/Output Intake/Output: Intake & Output 04/21/24 04/22/24 04/23/24 04/24/24 23:59 23:59 23:59 23:59 Intake Total 2180 1141.7 Output Total 300 200 Balance 1880 941.7 Meds/Results Medications: Active Medications Generic Name Dose Route Start Last Admin Trade Name Freq PRN Reason Stop Dose Admin Acetaminophen 650 mg 04/23/24 18:00 04/24/24 05:22 Acetaminophen 325 Mg Tablet PO 650 mg Q6H VAN Administration Aspirin 325 mg 04/24/24 09:00 04/24/24 09:25 Aspirin 325 Mg Tablet PO 325 mg DAILY VAN Administration Dextrose 12.5 gm 04/23/24 17:06 Dextrose 50% 25 Gm/50 Ml Syringe IV PUSH PRN PRN Hypoglycemia Protocol Enoxaparin Sodium 40 mg 04/24/24 09:00 04/24/24 09:26 Enoxaparin 40 Mg/0.4 Ml Syringe SUB-Q 40 mg DAILY VAN Administration Famotidine 20 mg 04/23/24 21:00 04/24/24 09:26 Famotidine 20 Mg Tablet PO 20 mg Q12HR VAN Administration Glucagon 1 mg 04/23/24 17:06 Glucagon For Inj 1 Mg Vial IM PRN PRN Hypoglycemia Protocol Glucose 15 gm 04/23/24 17:06 Glucose Oral Gel 15 Gm Of Glucse In 37.5 Gm Tube PO PRN PRN Hypoglycemia Protocol Hydrochlorothiazide 25 mg 04/24/24 09:00 04/24/24 09:32 Hydrochlorothiazide 25 Mg Tablet PO 25 mg DAILY VAN Administration Ceftriaxone Sodium 1 gm in 50 mls @ 100 mls/hr 04/24/24 00:00 04/24/24 00:29 Rocephin 1 Gm/Ns 50 Ml IVPB 100 mls/hr Q24H VAN Administration Sodium Chloride 1,000 mls @ 125 mls/
[2024-04-24 11:30] LABS: Glucose Point of Care 193 mg/dl (65-105)
--- NOTE | 2024-04-24 13:54 | ECG_ITS ---
Test Date: 2024-04-24 14:07:19 Measurements Intervals [place] Rate: 62 P: 0 MN: 0 QRS: -22 QRSD: 89 T: 41 QT: 398 QTc: 406 Interpretive Statements ATRIAL FIBRILLATION LOW QRS VOLTAGE IN PRECORDIAL LEADS [QRS DEFLECTION < 1.0 mV IN CHEST LEADS] LEFT AXIS DEVIATION POSSIBLE RIGHT VENTRICULAR CONDUCTION DELAY [RSR (QR) IN V1/V2] Poor R wave progression ABNORMAL RHYTHM ECG Compared to ECG 04/22/2024 21:38:01 Low QRS voltage now present Poor R wave progression now present Electronically Signed On 04-25-2024 08:24:38 CDT by Stevenson Ryan M.D.
[2024-04-24 16:51] LABS: Glucose Point of Care 162 mg/dl (65-105)
--- NOTE | 2024-04-24 17:07 | PM.IMPN ---
Progress Note: A&P Assessment and Plan (1) Fall: Onset Date: ~04/2024 Qualifiers: Encounter type: initial encounter Qualified Code(s): W19.XXXA - Unspecified fall, initial encounter Code(s): W19.XXXA - Unspecified fall, initial encounter Status: Acute Assessment and Plan: Planned discharge to [facility] when ready per patient (2) Closed hip fracture: Qualifiers: Encounter type: initial encounter Laterality: right Qualified Code(s): S72.001A - Fracture of unspecified part of neck of right femur, initial encounter for closed fracture Code(s): S72.009A - Fracture of unspecified part of neck of unspecified femur, initial encounter for closed fracture Status: Acute Assessment and Plan: -consult ortho-appreciate care - ORIF yesterday -Immobilizer right shoulder -PRN pain medication -PT/ OT eval and treat (3) Fracture, humerus closed: Qualifiers: Encounter type: initial encounter Laterality: right Code(s): S42.309A - Unspecified fracture of shaft of humerus, unspecified arm, initial encounter for closed fracture Status: Acute Assessment and Plan: -consult ortho-appreciate care -Immobilizer right shoulder -PRN pain medication (4) Acute UTI: Code(s): N39.0 - Urinary tract infection, site not specified Status: Acute Assessment and Plan: Rocephin 1 gm q 24 hrs await urine - pansensitive E coli -will switch antibiotic to Keflex 500 mg b.i.d. tomorrow for a total of 7 days (5) Type 2 diabetes mellitus: Code(s): E11.9 - Type 2 diabetes mellitus without complications Status: Acute Assessment and Plan: Accu checks AC/HS low dose sliding scale insulin AC/HS Hypoglycemia protocol Carb consistent diet when able (6) Paroxysmal atrial fibrillation: Code(s): I48.0 - Paroxysmal atrial fibrillation Status: Acute Assessment and Plan: continue home medication -monitor telemetry (7) GERD (gastroesophageal reflux disease): Code(s): K21.9 - Gastro-esophageal reflux disease without esophagitis Status: Acute Assessment and Plan: -continue home medication (8) Aortic stenosis: Qualifiers: Cardiac valve disease etiology: nonrheumatic Qualified Code(s): I35.0 - Nonrheumatic aortic (valve) stenosis Code(s): I35.0 - Nonrheumatic aortic (valve) stenosis Status: Acute Time Spent With Patient Time with patient: 15 - 25 minutes Subjective Date/time seen: 04/24/24 1240 Interval history: patient underwent ORIF the right hip yesterday afternoon and has already received physical therapy today is up in a chair. Patient states she is feeling pretty good at this time but when they started doing exercises with her the pain was pretty great. Urine culture returned pansensitive E coli. Will change to oral Keflex tomorrow for a total of 7 days of antibiotics. Patient had an episode where staff was rolling her on to a bedpan and she vomited and became bradycardic on telemetry. EKG was obtained that shows atrial fibrillation which patient has a history of and is currently on treatment. Patient denies any complaints of chest pain, shortness a breath, abdominal pain. Denies any nausea after she vomited. Possibly a vagal response to the vomiting. Review of Systems Review of Systems: All systems reviewed & are unremarkable except as noted in HPI and below Constitutional: Constitutional: Reports weakness Exam Narrative: Patient is sitting up in a recliner with her feet elevated upon entering the room. Alert and oriented x3. Appears in no acute distress. Const: General: comfortable and no acute distress Nutritional Appearance: average body habitus Orientation/consciousness: patient oriented x3 HENMT: Head: normal to inspection, normocephalic and atraumatic Ears: hearing grossly normal bilaterally Face/Nose/Sinus: Normal nares pr
[2024-04-24 19:59] LABS: Glucose Point of Care 161 mg/dl (65-105)
[2024-04-24] MEDS: SIMVASTATIN 20 MG TABLET PO (21:22)
[2024-04-24] MEDS: LATANOPROST 0.005% OP SOLN 2.5 ML BTL 1 DROP EACH EYE (21:24)
[2024-04-25] VITALS (11 sets, daily range): BP systolic 122–130; BP diastolic 48–55; PULSE 54–115; RESP 16–18; TEMP 36.4–36.6; O2SAT 94–97
[2024-04-25] MEDS: ACETAMINOPHEN 325 MG TABLET 650 MG PO ×3 (05:34→17:24)
[2024-04-25] MEDS: oxyCODONE HCL (*CRX) 2.5 MG TAB IR PO ×3 (05:34→21:11)
[2024-04-25 06:24] LABS: Basophils Percent Auto 0.3 % (0.2-1.2); Eosinophils Absolute Auto 0.1 K/mm3 (0-0.3); Eosinophils Percent Auto 1.3 % (0-4.4); Hematocrit 26.4 % (37.0-47.0); Hemoglobin 8.4 g/dL (12.0-15.0); Immature Granulocyte Absolute 0.06 K/mm3 (0.00-0.031); Immature Granulocyte Percent A 0.6 % (0-0.5); Immature Platelet Fraction Pct 7.4 % (0.9-11.2); Lymphocytes Absolute Auto 3.06 K/mm3 (0.9-3.2); Lymphocytes Percent Auto 31.6 % (18.3-44.2); Mean Corpuscular HGB Conc 31.8 g/dl (32-36); Mean Corpuscular Hemoglobin 32.4 pg (26-34); Mean Corpuscular Volume 101.9 fl (80-100); Mean Platelet Volume 11.4 fl (7.4-10.4); Monocytes Absolute Auto 0.5 K/mm3 (0.1-0.6); Monocytes Percent Auto 5.3 % (2.6-8.5); Neutrophils Absolute Auto 5.9 K/mm3 (1.3-6.7); Neutrophils Percent Auto 60.9 % (45.5-73.1); Platelet Count Result 85 k/mm3 (150-375); Red Blood Count 2.59 M/mm3 (4.2-5.4); Red Cell Distribution Width 13.8 % (11.5-14.5); White Blood Count 9.7 K/mm3 (4.5-10.0)
[2024-04-25 06:35] LABS: Anion Gap 8 mmol/L (4-12); Blood Urea Nitrogen 21 mg/dL (7-17); Carbon Dioxide 22 mmol/L (22-30); Chloride 105 mmol/L (98-107); Estimated CRCL calculation 38 ml/min; Estimated Glomerular Filt Rate 59; Glucose 104 mg/dL (65-110); Potassium 3.9 mmol/L (3.4-5.0); Sodium 135 mmol/L (137-145)
[2024-04-25 06:55] LABS: Hypochromasia 1+; Macrocytosis 1+ (NORMAL); Platelet Estimate Decreased (Adequate); Schistocytes None Seen
[2024-04-25 08:10] LABS: Glucose Point of Care 105 mg/dl (65-105)
--- NOTE | 2024-04-25 08:30 | PM.PNORT ---
Progress Note: A&P Assessment and Plan (1) Intertrochanteric fracture of right hip: Qualifiers: Encounter type: subsequent encounter Fracture alignment: displaced Fracture healing: with routine healing Fracture type: closed Qualified Code(s): S72.141D - Displaced intertrochanteric fracture of right femur, subsequent encounter for closed fracture with routine healing Code(s): S72.141A - Displaced intertrochanteric fracture of right femur, initial encounter for closed fracture Status: Acute Assessment and Plan: Postop day 2. After intra medullary fixation right intertrochanteric hip fracture. Patient also has surgical neck proximal humerus fracture. Her chief concern is that she believe she cannot she was a little bit confused to the fact that a Thomas catheter was removed yesterday and at 1:30 a.m. last night it was replaced. She had not voided 8 hours and bladder scan showed 460 cc of urine. Her creatinine is normal at 0.9. BUN is 21. Her admission creatinine was 1 and her admission BUN was 23. In March prior to her admission 3 days ago she did have some degree of renal insufficiency. She presented with a E coli urinary tract infection. I would like to consult Urology for their recommendations on whether any medication might help her urinary retention and whether bladder training may be helpful for this and when the Thomas catheter should be removed With respect to her urinary tract infection, the susceptibilities of her E coli and infection show cefazolin is at reported with respect to appropriate choice and therefore since cephalexin is almost identical to cefazolin, and since it is not specifically identified as being susceptible, I am not sure this is an optimal choice for antibiotic coverage of her UTI. I have spoken with Ms. Ku the hospitalist and we will keep her on the IV ceftriaxone for another 2 days which will complete her 5 day course. She is afebrile with stable vital signs. Her hemoglobin today is 8.4. It was 8.7 yesterday. It seems stable. Her admission hemoglobin was 12.9. She has a moderate acute blood loss anemia from her right intertrochanteric hip fracture and her humeral neck fracture and the blood loss and drop in hemoglobin is what we would expect. Her platelets are 85,000. Yesterday, prior to starting Lovenox for DVT prophylaxis, her platelets were 97,000. On admission her platelets were 171,000. Her drop in platelets is not due to the Lovenox as it occurred before the Lovenox was started. Her drop in platelets is presumably due to consumption associated with her acute blood-loss. She does have diffuse to moderate enlargement of the right lower extremity compared to the left lower extremity could represent a DVT and DVT can consume platelets as well. We will obtain a venous duplex ultrasound of the right lower extremity today. She is being transferred with a Irene lift bed to chair. This is due to the fact that she cannot use her right upper extremity to bear weight due to the fracture and she needs to be partial weight-bearing on the right leg or excessive fracture collapse or hardware cut out could occur. We will continue with Irene lift until she can be allowed to be full weight-bearing which will be at approximately 6 weeks. Will recheck CBC and BMP tomorrow morning. (2) Fx humeral neck: Qualifiers: Encounter type: subsequent encounter Fracture healing: with routine healing Fracture type: closed Laterality: right Qualified Code(s): S42.211D - Unspecified displaced fracture of surgical neck of right humerus, subsequent encounter for fracture with routine healing Code(s): S42.213A - Unspecified displaced fracture of surgical neck of unspecified humerus, initial encounter for closed fracture Status: Acute Subjective Subjective Date/Time Seen: 04/25/24 08:30 Objective Data Vital Signs Vital Signs: Vital Signs - 24 hr 04/24/24 08:
[2024-04-25] MEDS: OPTI-GEN TAB 1 TABLET PO ×2 (08:49→17:24)
[2024-04-25] MEDS: PANTOPRAZOLE 40 MG TABLET PO ×2 (08:49→17:24)
[2024-04-25] MEDS: metFORMIN HCL 500 MG TABLET PO ×2 (08:49→17:24)
[2024-04-25] MEDS: lisinopriL 20 MG TABLET 40 MG PO (08:49)
[2024-04-25] MEDS: SENNA/DOCUSATE SODIUM TABLET 2 TAB PO ×2 (08:49→17:23)
[2024-04-25] MEDS: FAMOTIDINE 20 MG TABLET PO ×2 (08:49→21:08)
[2024-04-25] MEDS: ASPIRIN 325 MG TABLET PO (08:49)
[2024-04-25] MEDS: VITAMIN B COMPLEX CAPSULE 1 CAP PO (08:49)
[2024-04-25] MEDS: METOPROLOL TARTRATE 25 MG TABLET PO ×2 (08:50→21:08)
[2024-04-25] MEDS: ENOXAPARIN 40 MG/0.4 ML SYRINGE SUB-Q (08:50)
[2024-04-25] MEDS: hydroCHLOROthiazide 25 MG TABLET PO (08:50)
[2024-04-25] MEDS: polyethylene glycoL 3350 17 GM POWD.PACK PO (08:55)
[2024-04-25 11:37] LABS: Glucose Point of Care 159 mg/dl (65-105)
--- NOTE | 2024-04-25 13:27 | PM.IMPN ---
Progress Note: A&P Assessment and Plan (1) Closed hip fracture: Qualifiers: Encounter type: initial encounter Laterality: right Qualified Code(s): S72.001A - Fracture of unspecified part of neck of right femur, initial encounter for closed fracture Code(s): S72.009A - Fracture of unspecified part of neck of unspecified femur, initial encounter for closed fracture Status: Acute Assessment and Plan: Status post ORIF 04/23 Check 25-OH D (evidence for post hip fx supplementation is limited) Consider outpatient DEXA (2) Fracture, humerus closed: Qualifiers: Encounter type: initial encounter Laterality: right Code(s): S42.309A - Unspecified fracture of shaft of humerus, unspecified arm, initial encounter for closed fracture Status: Acute Assessment and Plan: Conservative management with shoulder immobilizer and analgesics (3) Acute UTI: Code(s): N39.0 - Urinary tract infection, site not specified Status: Acute Assessment and Plan: Continue ceftriaxone through 04/27 for 5 day course sensitive E. coli (4) Type 2 diabetes mellitus: Code(s): E11.9 - Type 2 diabetes mellitus without complications Status: Acute Assessment and Plan: 04/25 glucose reviewed and adequately controlled (5) Paroxysmal atrial fibrillation: Code(s): I48.0 - Paroxysmal atrial fibrillation Status: Acute Assessment and Plan: Continue home regimen of aspirin and metoprolol (6) GERD (gastroesophageal reflux disease): Code(s): K21.9 - Gastro-esophageal reflux disease without esophagitis Status: Acute Assessment and Plan: Continue pantoprazole (7) Aortic stenosis: Qualifiers: Cardiac valve disease etiology: nonrheumatic Qualified Code(s): I35.0 - Nonrheumatic aortic (valve) stenosis Code(s): I35.0 - Nonrheumatic aortic (valve) stenosis Status: Acute Assessment and Plan: Clinically stable (8) Fall: Onset Date: ~04/2024 Qualifiers: Encounter type: initial encounter Qualified Code(s): W19.XXXA - Unspecified fall, initial encounter Code(s): W19.XXXA - Unspecified fall, initial encounter Status: Acute Assessment and Plan: From standing height Subjective Date/time seen: 04/25/24 13:27 Interval history: Minimal pain in hip. Worse in right shoulder. Worse with any movement. Tolerating diet. Had urinary retention overnight 460 mL. Thomas catheter back in. Still wearing oxygen. As incentive spirometer at bedside. Does not wear oxygen at home. Lives at home alone. Will need rehab prior to returning home. Review of Systems Review of Systems: All systems reviewed & are unremarkable except as noted in HPI and below Exam Narrative: HEENT: PERRL, sclerae nonicteric, pharyngeal mucosa pink and intact NECK: No JVD CHEST: Clear to auscultation. Normal effort. HEART: NL S1/S2, regular, soft systolic ejection murmur. ABDOMEN: BS+, soft, nontender, no mass, no bruits EXTREMITIES: No cyanosis, edema, or clubbing NEUROLOGIC: CN intact and symmetric to inspection. MUSCULOSKELETAL: Ecchymoses and edema of right arm. PSYCH: Alert. Oriented to person, place, and time. Objective Data Vital Signs Vital Signs: Vital Signs - 24 hr 04/24/24 14:14 04/24/24 16:00 04/24/24 18:14 Temperature 98.1 F 97.3 F L Pulse Rate 69 68 63 Respiratory Rate 18 18 Blood Pressure 114/71 116/46 L Pulse Oximetry 97 99 Oxygen Delivery Oxygen Flow Rate Fraction of Inspired Oxygen 04/24/24 20:27 04/24/24 21:22 04/24/24 21:12 Temperature 97.9 F Pulse Rate 70 70 Respiratory Rate 16 Blood Pressure 123/43 L Pulse Oximetry 98 98 Oxygen Delivery Nasal Cannula Oxygen Flow Rate 2 Fraction of Inspired Oxygen 04/24/24 20:00 04/25/24 00:00 04/25/24 04:00 Temperature Pulse Rate 62 58 L 63 Respiratory Rate Blood Press
[2024-04-25 16:43] LABS: Glucose Point of Care 165 mg/dl (65-105)
[2024-04-25] MEDS: SIMVASTATIN 20 MG TABLET PO (21:08)
[2024-04-25] MEDS: LATANOPROST 0.005% OP SOLN 2.5 ML BTL 1 DROP EACH EYE (21:10)
[2024-04-25 21:52] LABS: Glucose Point of Care 173 mg/dl (65-105)
[2024-04-26] VITALS (10 sets, daily range): BP systolic 129–153; BP diastolic 46–72; PULSE 60–84; RESP 20; TEMP 37.1–37.5; O2SAT 93–97; BMI 10.0
[2024-04-26] MEDS: ACETAMINOPHEN 325 MG TABLET 650 MG PO ×4 (00:10→17:00)
[2024-04-26] MEDS: oxyCODONE HCL (*CRX) 2.5 MG TAB IR PO ×3 (05:21→22:29)
--- NOTE | 2024-04-26 06:47 | PM.PNORT ---
Progress Note: A&P Assessment and Plan (1) Fx humeral neck: Qualifiers: Encounter type: subsequent encounter Fracture type: closed Laterality: right Fracture healing: with routine healing Qualified Code(s): S42.211D - Unspecified displaced fracture of surgical neck of right humerus, subsequent encounter for fracture with routine healing Code(s): S42.213A - Unspecified displaced fracture of surgical neck of unspecified humerus, initial encounter for closed fracture Status: Acute (2) Intertrochanteric fracture of right hip: Qualifiers: Encounter type: subsequent encounter Fracture type: closed Fracture alignment: displaced Fracture healing: with routine healing Qualified Code(s): S72.141D - Displaced intertrochanteric fracture of right femur, subsequent encounter for closed fracture with routine healing Code(s): S72.141A - Displaced intertrochanteric fracture of right femur, initial encounter for closed fracture Status: Acute Assessment and Plan: Patient is postoperative day 3. After internal fixation right intertrochanteric hip fracture. She also has a moderately displaced right humeral neck fracture that is being treated nonsurgically. The swelling in her right leg and calf is little bit less today. The venous duplex ultrasound obtained yesterday was negative for DVT. We do not have her labs backed this morning to assess her thrombocytopenia but hopefully this is rebound the normal level of platelets. She is more alert and A. She knew she was in [place] she thought she was in . She was aware that she is here be sustain fractures she is aware that she had surgery on the right hip but does not recall the surgery itself of course. The Thomas catheter is in place. She is on ceftriaxone for her E coli UTI. Plan is for 5 days of IV ceftriaxone. 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 Urology has been consulted for further recommendations. She is louie lift bed to chair because she cannot transfer effectively with 1 hand excessive weight on the right hip. Subjective Subjective Date/Time Seen: 04/26/24 06:47 Objective Data Vital Signs Vital Signs: Vital Signs - 24 hr 04/25/24 08:54 04/25/24 08:00 04/25/24 12:00 Temperature Pulse Rate 65 60 Respiratory Rate Blood Pressure Pulse Oximetry 94 Oxygen Delivery Nasal Cannula Oxygen Flow Rate 1.5 Fraction of Inspired Oxygen 26 04/25/24 16:00 04/25/24 21:08 04/25/24 20:30 Temperature 36.4 C L Pulse Rate 54 L 56 L 115 H Respiratory Rate 18 Blood Pressure 130/48 L Pulse Oximetry 97 Oxygen Delivery Oxygen Flow Rate Fraction of Inspired Oxygen 04/25/24 20:00 04/25/24 21:00 04/25/24 20:00 Temperature Pulse Rate 55 L Respiratory Rate Blood Pressure Pulse Oximetry 97 94 Oxygen Delivery Nasal Cannula Room Air Oxygen Flow Rate 1.5 Fraction of Inspired Oxygen 04/26/24 00:00 04/26/24 04:00 04/26/24 05:25 Temperature 37.1 C Pulse Rate 60 67 72 Respiratory Rate 20 Blood Pressure 146/72 H Pulse Oximetry 97 Oxygen Delivery Oxygen Flow Rate Fraction of Inspired Oxygen Intake/Output Intake/Output: Intake & Output 04/23/24 04/24/24 04/25/24 04/26/24 23:59 23:59 23:59 23:59 Intake Total 2180 3931.7 960 Output Total 300 500 500 850 Balance 1880 3431.7 460 -850 Meds/Results Medications: Active Medications Generic Name Dose Route Start Last Admin Trade Name Freq PRN Reason Stop Dose Admin Acetaminophen 650 mg 04/23/24 18:00 04/26/24 05:22 Acetaminophen 325 Mg Tablet PO 650 mg Q6H VAN Administration Aspirin 325 mg 04/24/24 09:00 04/25/24 08:49 Aspirin 325 Mg Tablet PO 325 mg DAILY VAN Administration Dextrose 12.5 gm 04/23/24 17:06 Dextrose 50% 25 Gm/50 Ml Syringe IV PUSH PRN PRN
[2024-04-26 06:52] LABS: Basophils Percent Auto 0.3 % (0.2-1.2); Eosinophils Absolute Auto 0.2 K/mm3 (0-0.3); Eosinophils Percent Auto 2.4 % (0-4.4); Hematocrit 24.9 % (37.0-47.0); Hemoglobin 8.1 g/dL (12.0-15.0); Immature Granulocyte Absolute 0.07 K/mm3 (0.00-0.031); Immature Granulocyte Percent A 0.9 % (0-0.5); Lymphocytes Absolute Auto 3.36 K/mm3 (0.9-3.2); Mean Corpuscular HGB Conc 32.5 g/dl (32-36); Mean Corpuscular Hemoglobin 31.9 pg (26-34); Mean Platelet Volume 11.6 fl (7.4-10.4); Monocytes Absolute Auto 0.3 K/mm3 (0.1-0.6); Monocytes Percent Auto 4.2 % (2.6-8.5); Neutrophils Absolute Auto 3.9 K/mm3 (1.3-6.7); Neutrophils Percent Auto 49.2 % (45.5-73.1); Platelet Count Result 103 k/mm3 (150-375); Red Blood Count 2.54 M/mm3 (4.2-5.4); Red Cell Distribution Width 13.9 % (11.5-14.5); White Blood Count 7.8 K/mm3 (4.5-10.0)
[2024-04-26 07:12] LABS: Anion Gap 7 mmol/L (4-12); Blood Urea Nitrogen 22 mg/dL (7-17); Calcium 8.3 mg/dL (8.4-10.2); Carbon Dioxide 25 mmol/L (22-30); Chloride 104 mmol/L (98-107); Estimated CRCL calculation 34 ml/min; Estimated Glomerular Filt Rate 52; Glucose 112 mg/dL (65-110); Potassium 3.3 mmol/L (3.4-5.0); Sodium 136 mmol/L (137-145)
[2024-04-26 07:17] LABS: Platelet Estimate Decreased (Adequate); Schistocytes None Seen
[2024-04-26 07:38] LABS: Glucose Point of Care 133 mg/dl (65-105)
[2024-04-26] MEDS: VITAMIN B COMPLEX CAPSULE 1 CAP PO (08:07)
[2024-04-26] MEDS: lisinopriL 20 MG TABLET 40 MG PO (08:07)
[2024-04-26] MEDS: FAMOTIDINE 20 MG TABLET PO ×2 (08:07→20:45)
[2024-04-26] MEDS: PANTOPRAZOLE 40 MG TABLET PO ×2 (08:07→17:00)
[2024-04-26] MEDS: OPTI-GEN TAB 1 TABLET PO ×2 (08:07→17:00)
[2024-04-26] MEDS: SENNA/DOCUSATE SODIUM TABLET 2 TAB PO ×2 (08:07→17:00)
[2024-04-26] MEDS: ASPIRIN 325 MG TABLET PO (08:07)
[2024-04-26] MEDS: ENOXAPARIN 40 MG/0.4 ML SYRINGE SUB-Q (08:07)
[2024-04-26] MEDS: hydroCHLOROthiazide 25 MG TABLET PO (08:07)
[2024-04-26] MEDS: metFORMIN HCL 500 MG TABLET PO ×2 (08:07→17:00)
[2024-04-26] MEDS: METOPROLOL TARTRATE 25 MG TABLET PO ×2 (08:07→20:45)
[2024-04-26] MEDS: POTASSIUM CHLORIDE 20 MEQ ER TABLET 40 MEQ PO (08:27)
--- NOTE | 2024-04-26 09:36 | WPDURCON ---
Assessment and Plan Assessment and plan (1) Acute UTI: Code(s): N39.0 - Urinary tract infection, site not specified Status: Acute (2) Acute retention of urine: Code(s): R33.8 - Other retention of urine Status: Acute Plan 89 yr old female s/p recent fall and R hip repair who is having issues with urinary retention in the setting of a UTI. The urinary retention is likely multifactorial due at least in part to infection, immobility, and polypharmacy. Due to recent fall, I would not recommend adding tamsulosin due to risk of orthostatic hypotension/recurrent fall. Would recommend completing the course of antibiotics for current infection and would recommend repeat voiding trial once patient is more mobile and able to transfer to a commode. If being discharged to rehab, the voiding trial can be completed at rehab. If ongoing issues with retention, she can f/u in our [place] office for urodynamics and further testing. Urology Consult Note HPI Date Seen: 04/26/24 Requesting Physician: Alcira Hemphill MD Primary Care Provider: Jeni Lugo MD Consult Narrative Narrative: Betsy Frost is a 89 year old female admitted after a fall with a right hip and right humoral fracture. She underwent surgical repair of the hip fracture. As part of her evaluation, she was found to have a UTI and has been on rocephin. She underwent a voiding trial recently with pvr 460 cc residual. Thomas was replaced. She states that normally she has no difficulty voiding. She wears a liner for protection but has rare incontinence. She feels it is difficult to void currently since she is unable to get out of bed on her own to use the commode. 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 Essential (primary) hypertension Generalized anxiety disorder Glaucoma Hypertension Hypomagnesemia Lumbar spondylosis MCI (mild cognitive impairment) Mixed hyperlipidemia Mixed hyperlipidemia Osteopenia Osteopenia of multiple sites Paroxysmal atrial fibrillation Transient ischemic attack Tricuspid regurgitation Tricuspid valve regurgitation, secondary Type 2 diabetes mellitus with diabetic chronic kidney disease Urinary tract infection Vertigo Vitamin D deficiency Surgical History Surgical History History of appendectomy History of cholecystectomy History of enucleation of right eyeball History of total hysterectomy Family History Family History Mother Patient's mother is Carcinoma of colon Father Patient's father is Sibling Patient's sister is in good health Patient's brother is Carcinoma of esophagus Lymphoma Social History Social History Social History: The patient is and lives in her own home In [place]. She is a lifelong nonsmoker. No alcohol or illicit substance abuse. She designates her daughter Lizzette as her surrogate decision maker and she wishes to be a full code. Smoking status: Never smoker Second hand tobacco smoke exposure: Yes Alcohol intake: never Substance use: never Substance use type: does not use Do You Feel Safe in your Home?: Yes Lack of Transportation: No Lack of Food: Never True Current Housing: I Have Housing Concerned About Future Housing: No Difficulty Paying Gas/Electric Bills: No Difficult
[2024-04-26 11:36] LABS: Glucose Point of Care 212 mg/dl (65-105)
[2024-04-26] MEDS: INSULIN ASPART (*BKC) 100 UNITS/ML SUB-Q (11:49)
--- NOTE | 2024-04-26 14:29 | PM.IMPN ---
Progress Note: A&P Assessment and Plan (1) Closed hip fracture: Qualifiers: Encounter type: initial encounter Laterality: right Qualified Code(s): S72.001A - Fracture of unspecified part of neck of right femur, initial encounter for closed fracture Code(s): S72.009A - Fracture of unspecified part of neck of unspecified femur, initial encounter for closed fracture Status: Acute Assessment and Plan: Right Status post ORIF 04/23 25-OHD 57.1 (WNL) Consider outpatient DEXA (2) Fracture, humerus closed: Qualifiers: Encounter type: initial encounter Laterality: right Code(s): S42.309A - Unspecified fracture of shaft of humerus, unspecified arm, initial encounter for closed fracture Status: Acute Assessment and Plan: Right Conservative management with shoulder immobilizer and analgesics (3) Acute retention of urine: Code(s): R33.8 - Other retention of urine Status: Acute Assessment and Plan: Likely related to UTI, constipation, anesthesia, opioids, inactivity Consider repeat voiding trial in 1-2 days (4) Acute UTI: Code(s): N39.0 - Urinary tract infection, site not specified Status: Acute Assessment and Plan: Continue ceftriaxone through 04/27 for 5 day course sensitive E. coli (5) Type 2 diabetes mellitus: Code(s): E11.9 - Type 2 diabetes mellitus without complications Status: Acute Assessment and Plan: 04/26 glucose reviewed and adequately controlled (6) Paroxysmal atrial fibrillation: Code(s): I48.0 - Paroxysmal atrial fibrillation Status: Acute Assessment and Plan: Continue home regimen of aspirin and metoprolol (7) GERD (gastroesophageal reflux disease): Code(s): K21.9 - Gastro-esophageal reflux disease without esophagitis Status: Acute Assessment and Plan: Continue pantoprazole (8) Aortic stenosis: Qualifiers: Cardiac valve disease etiology: nonrheumatic Qualified Code(s): I35.0 - Nonrheumatic aortic (valve) stenosis Code(s): I35.0 - Nonrheumatic aortic (valve) stenosis Status: Acute Assessment and Plan: Clinically stable (9) Fall: Onset Date: ~04/2024 Qualifiers: Encounter type: initial encounter Qualified Code(s): W19.XXXA - Unspecified fall, initial encounter Code(s): W19.XXXA - Unspecified fall, initial encounter Status: Acute Assessment and Plan: From standing height w/o LOC Subjective Date/time seen: 04/26/24 14:29 Interval history: Pain in right hip and shoulder doing much better today bowels moved twice. Tolerating diet. Had urinary retention 04/25 overnight 460 mL. Thomsa catheter back in. No longer wearing oxygen. Has incentive spirometer at bedside. Lives at home alone. Will need rehab prior to returning home. Denied chest pain or shortness of breath or abdominal pain. Denied bleeding. Review of Systems Review of Systems: All systems reviewed & are unremarkable except as noted in HPI and below Exam Narrative: HEENT: Right eye prosthesis, left pupil round and reactive, sclerae nonicteric, pharyngeal mucosa pink and intact NECK: No JVD CHEST: Clear to auscultation. Normal effort. HEART: NL S1/S2, regular, soft systolic ejection murmur. ABDOMEN: BS+, soft, nontender, no mass, no bruits EXTREMITIES: No cyanosis, edema, or clubbing NEUROLOGIC: CN intact and symmetric to inspection. MUSCULOSKELETAL: Ecchymoses and edema of right arm. PSYCH: Alert. Oriented to person, place, and time. Objective Data Vital Signs Vital Signs: Vital Signs - 24 hr 04/25/24 16:00 04/25/24 21:08 04/25/24 20:30 Temperature 97.5 F L Pulse Rate 54 L 56 L 115 H Respiratory Rate 18 Blood Pressure 130/48 L Pulse Oximetry 97 Oxygen Delivery Oxygen Flow Rate 04/25/24 20:00 04/25/24 21:00 04/25/24 20:00 Temperature Pulse Rate 55 L Re
[2024-04-26 16:27] LABS: Glucose Point of Care 162 mg/dl (65-105)
[2024-04-26 16:56] LABS: Vitamin D 25 Hydroxy 36.2 ng/mL
[2024-04-26] MEDS: SIMVASTATIN 20 MG TABLET PO (20:45)
[2024-04-26] MEDS: LATANOPROST 0.005% OP SOLN 2.5 ML BTL 1 DROP EACH EYE (20:47)
[2024-04-26 21:15] LABS: Glucose Point of Care 142 mg/dl (65-105)
[2024-04-27] VITALS (7 sets, daily range): BP systolic 138–149; BP diastolic 58–61; PULSE 55–85; RESP 18–20; TEMP 36.3–37.3; O2SAT 99–100
[2024-04-27] MEDS: oxyCODONE HCL (*CRX) 2.5 MG TAB IR PO ×2 (06:03→13:26)
[2024-04-27] MEDS: ACETAMINOPHEN 325 MG TABLET 650 MG PO ×2 (06:03→17:05)
[2024-04-27 06:59] LABS: Basophils Percent Auto 0.3 % (0.2-1.2); Eosinophils Absolute Auto 0.1 K/mm3 (0-0.3); Eosinophils Percent Auto 1.7 % (0-4.4); Hematocrit 24.2 % (37.0-47.0); Hemoglobin 7.8 g/dL (12.0-15.0); Immature Granulocyte Absolute 0.08 K/mm3 (0.00-0.031); Immature Granulocyte Percent A 1.1 % (0-0.5); Lymphocytes Absolute Auto 2.91 K/mm3 (0.9-3.2); Lymphocytes Percent Auto 38.2 % (18.3-44.2); Mean Corpuscular HGB Conc 32.2 g/dl (32-36); Mean Corpuscular Hemoglobin 31.5 pg (26-34); Mean Corpuscular Volume 97.6 fl (80-100); Mean Platelet Volume 10.9 fl (7.4-10.4); Monocytes Absolute Auto 0.4 K/mm3 (0.1-0.6); Monocytes Percent Auto 5.1 % (2.6-8.5); Neutrophils Absolute Auto 4.1 K/mm3 (1.3-6.7); Neutrophils Percent Auto 53.6 % (45.5-73.1); Platelet Count Result 116 k/mm3 (150-375); Red Blood Count 2.48 M/mm3 (4.2-5.4); White Blood Count 7.6 K/mm3 (4.5-10.0)
[2024-04-27 07:13] LABS: Anion Gap 4 mmol/L (4-12); Blood Urea Nitrogen 17 mg/dL (7-17); Calcium 8.4 mg/dL (8.4-10.2); Carbon Dioxide 28 mmol/L (22-30); Chloride 103 mmol/L (98-107); Estimated CRCL calculation 38 ml/min; Estimated Glomerular Filt Rate 59; Glucose 134 mg/dL (65-110); Potassium 3.5 mmol/L (3.4-5.0); Sodium 135 mmol/L (137-145)
[2024-04-27 07:27] LABS: Platelet Estimate Slightly Decreased (Adequate); Schistocytes None Seen
[2024-04-27 07:28] LABS: Hypochromasia 2+; Smudge Cells FEW
[2024-04-27 08:10] LABS: Glucose Point of Care 140 mg/dl (65-105)
[2024-04-27] MEDS: METOPROLOL TARTRATE 25 MG TABLET PO (09:41)
[2024-04-27] MEDS: ASPIRIN 325 MG TABLET PO (09:41)
[2024-04-27] MEDS: ENOXAPARIN 40 MG/0.4 ML SYRINGE SUB-Q (09:42)
[2024-04-27] MEDS: SENNA/DOCUSATE SODIUM TABLET 2 TAB PO ×2 (09:42→17:05)
[2024-04-27] MEDS: OPTI-GEN TAB 1 TABLET PO ×2 (09:42→17:05)
[2024-04-27] MEDS: metFORMIN HCL 500 MG TABLET PO ×2 (09:42→17:05)
[2024-04-27] MEDS: PANTOPRAZOLE 40 MG TABLET PO ×2 (09:42→17:05)
[2024-04-27] MEDS: FAMOTIDINE 20 MG TABLET PO (09:42)
[2024-04-27] MEDS: lisinopriL 20 MG TABLET 40 MG PO (09:42)
[2024-04-27] MEDS: VITAMIN B COMPLEX CAPSULE 1 CAP PO (09:43)
--- NOTE | 2024-04-27 11:27 | PM.PNORT ---
Subjective Subjective Date/Time Seen: 04/27/24 11:27 Interval history: Patient is postop day 3. Hemoglobin is stable. BUN is normal so patient is euvolemic. Do not feel that she needs to be transfused at this point. Patient may be transferred to rehab facility once accepted. Discharge instructions were done on the discharge order. Patient is alert. Dressings are dry and intact. Shoulder immobilizer is on. Objective Data Vital Signs Vital Signs: Vital Signs - 24 hr 04/26/24 13:58 04/26/24 12:00 04/26/24 16:00 Temperature 99.5 F Pulse Rate 61 64 69 Respiratory Rate 20 Blood Pressure 129/46 L Pulse Oximetry 93 04/26/24 21:49 04/26/24 20:00 04/27/24 00:00 Temperature 99.1 F Pulse Rate 84 67 55 L Respiratory Rate 20 Blood Pressure 153/50 H Pulse Oximetry 94 04/27/24 04:00 04/27/24 05:58 04/27/24 09:41 Temperature 99.1 F Pulse Rate 80 85 80 Respiratory Rate 18 Blood Pressure 149/61 H Pulse Oximetry 99 Intake/Output Intake/Output: Intake & Output 04/24/24 04/25/24 04/26/24 04/27/24 23:59 23:59 23:59 23:59 Intake Total 3931.7 1010 1722 100 Output Total 265 617 1409 750 Balance 3431.7 510 147 -650 Meds/Results Medications: Active Medications Generic Name Dose Route Start Last Admin Trade Name Freq PRN Reason Stop Dose Admin Acetaminophen 650 mg 04/23/24 18:00 04/27/24 06:03 Acetaminophen 325 Mg Tablet PO 650 mg Q6H VAN Administration Aspirin 325 mg 04/24/24 09:00 04/27/24 09:41 Aspirin 325 Mg Tablet PO 325 mg DAILY VAN Administration Dextrose 12.5 gm 04/23/24 17:06 Dextrose 50% 25 Gm/50 Ml Syringe IV PUSH PRN PRN Hypoglycemia Protocol Enoxaparin Sodium 40 mg 04/24/24 09:00 04/27/24 09:42 Enoxaparin 40 Mg/0.4 Ml Syringe SUB-Q 40 mg DAILY VAN Administration Famotidine 20 mg 04/23/24 21:00 04/27/24 09:42 Famotidine 20 Mg Tablet PO 20 mg Q12HR VAN Administration Glucagon 1 mg 04/23/24 17:06 Glucagon For Inj 1 Mg Vial IM PRN PRN Hypoglycemia Protocol Glucose 15 gm 04/23/24 17:06 Glucose Oral Gel 15 Gm Of Glucse In 37.5 Gm Tube PO PRN PRN Hypoglycemia Protocol Dextrose 1,000 mls @ 100 mls/hr 04/23/24 17:06 Dextrose 5% 1,000 Ml IVPB PRN PRN Hypoglycemia Protocol Ceftriaxone Sodium 1 gm in 50 mls @ 100 mls/hr 04/25/24 21:00 04/26/24 21:15 Rocephin 1 Gm/Ns 50 Ml IVPB 04/27/24 23:59 Infused Q24H VAN Infusion Insulin Aspart 2 - 5 units 04/24/24 08:00 04/27/24 09:43 Insulin Aspart (*Bkc) 100 Units/Ml SUB-Q Not Given TIDWM VAN Protocol Insulin Aspart 1 - 2 units 04/23/24 21:00 04/26/24 22:39 Insulin Aspart (*Bkc) 100 Units/Ml SUB-Q Not Given HS [facility] Protocol Latanoprost 1 drop 04/23/24 21:00 04/26/24 20:47 Latanoprost 0.005% Op Soln 2.5 Ml Btl EACH EYE 1 drop QHS VAN Administration Lisinopril 40 mg 04/24/24 09:00 04/27/24 09:42 Lisinopril 20 Mg Tablet PO 40 mg DAILY VAN Administration Metformin HCl 500 mg 04/23/24 17:00 04/27/24 09:42 Metformin Hcl 500 Mg Tablet PO 500 mg BID VAN Administration Metoprolol Tartrate 25 mg 04/23/24 21:00 04/27/24 09:41 Metoprolol Tartrate 25 Mg Tablet PO 25 mg Q12HR VAN Administration Morphine Sulfate 2 mg 04/23/24 16:29 Morphine Sulfate (*Crx) 2 Mg/Ml Inj IV PUSH Q2H PRN Breakthrough Pain Rated 4-6 or NPO Multivitamins/Minerals 1 tablet 04/23/24 17:00 04/27/24 09:42 Opti-Gen Tab PO 1 tablet BID VAN Administration Naloxone HCl 0.1 mg 04/23/24 16:29 Naloxone Hcl 0.4 Mg/Ml Vial IV PUSH Q2M PRN Opiate Reversal Ondansetron HCl 4 mg 04/23/24 16:29 04/23/24 21:16 Ondansetron Inj 4 Mg/2 Ml Vial IV PUSH 4 mg Q4H PRN Administration Nausea And Vomiting Oxycodone HCl 2.5 mg 04/23/24 17:00 04/27/24 06:03 Oxycodone Hcl (*Crx) 2.5 Mg Tab Ir PO 2.5 mg Q8HR VAN
[2024-04-27 12:00] LABS: Glucose Point of Care 254 mg/dl (65-105)
[2024-04-27] MEDS: INSULIN ASPART (*BKC) 100 UNITS/ML SUB-Q (13:26)
[2024-04-27 16:53] LABS: Glucose Point of Care 155 mg/dl (65-105)
--- NOTE | 2024-04-27 18:01 | PM.DS ---
DS: Admitting Diagnosis Discharge Date 04/27/24 Admitting Diagnosis Femur fracture DS: Discharge Diagnosis Discharge Diagnosis (1) Acute retention of urine: Code(s): R33.8 - Other retention of urine Status: Acute (2) Fx humeral neck: Qualifiers: Encounter type: subsequent encounter Fracture type: closed Laterality: right Fracture healing: with routine healing Qualified Code(s): S42.211D - Unspecified displaced fracture of surgical neck of right humerus, subsequent encounter for fracture with routine healing Code(s): S42.213A - Unspecified displaced fracture of surgical neck of unspecified humerus, initial encounter for closed fracture Status: Acute (3) Intertrochanteric fracture of right hip: Qualifiers: Encounter type: subsequent encounter Fracture type: closed Fracture alignment: displaced Fracture healing: with routine healing Qualified Code(s): S72.141D - Displaced intertrochanteric fracture of right femur, subsequent encounter for closed fracture with routine healing Code(s): S72.141A - Displaced intertrochanteric fracture of right femur, initial encounter for closed fracture Status: Acute (4) Closed hip fracture: Qualifiers: Encounter type: initial encounter Laterality: right Qualified Code(s): S72.001A - Fracture of unspecified part of neck of right femur, initial encounter for closed fracture Code(s): S72.009A - Fracture of unspecified part of neck of unspecified femur, initial encounter for closed fracture Status: Acute (5) Fracture, humerus closed: Qualifiers: Encounter type: initial encounter Laterality: right Code(s): S42.309A - Unspecified fracture of shaft of humerus, unspecified arm, initial encounter for closed fracture Status: Acute (6) Acute UTI: Code(s): N39.0 - Urinary tract infection, site not specified Status: Acute DS: Summary Hospital Course Reason for hospitalization: Femur fracture Hospital Course: Betsy Frost is an 89 year old female admitted for a right hip fracture Closed Right Hip Fracture?Orthopedic Surgery was consulted and she was taken to the OR 04/[address] Baron, orthopedic surgery. Discharge instructions per ortho Irene lift bed to chair 3 times a day for 6 weeks. Therapy to have patients move her digits and wrist of the right hand several times a day to prevent stiffness. Please have a small pillow or small folded towel between her right elbow and the bed while she is in bed to support the elbow. Patient should have pillows underneath can have his when in bed so there was no pressure on heels. Shoulder immobilizer is to stay on [employer] principal. Lovenox 40 mg daily for 6 weeks total Dressings may be removed in 1 week and incisions left open to air Pain control: Tylenol, oxycodone 2.5mg PRN. Had been receiving scheduled oxycodone 2.5 TID. Changed to prn since not requesting PRN medications for days. Right humeral head fracture?shoulder immobilizer Acute urinary retention UTI Suspect urinary retention 2/2 opiates and possible UTI. Urology was consulted and did not recommend adding tamsulosin due to risk of fall. ?She failed a voiding trial, 460ml residual. --Recommend void trial at rehab. Has completed antibiotics for UTI --Continue to wean opiates as able --Continued Ceftriaxone 04/25-04/27.? Continue Augmentin 500-125 TID for 5 more days --Follow up with Urology in the [place] office as needed, was seen by Dr. Yuliet Palomino, Afib Continued home aspirin and metoprolol Bilateral lower extremity edema?L>R on day of discharge. Bilateral LE dopplers were negative --HCTZ 25mg on hold. Sodium slightly low, improved. --Resume PRN DMII?Home meds Glipizide 2.5 daily and metoprolol 500 BID. Held oral meds during admission. Continued SSI. At discharge, resumed metformin BID, continued SSI. Can resume glipizide per outpatient provide
== END 2024-04-27 19:30 | DRG 481 ==
LOC: ANHED 23:24 → ANH3MEDSUR 23:51
PROVIDERS: Internal Medicine; Nurse Practitioner Family; Orthopaedic Surgery; Physician Assistant Surgical; Admitting Provider Internal Medicine; Emergency Provider Emergency Medicine; PCP Family Medicine; Visit Provider Nurse Practitioner Acute Care
PROC: 2W38XYZ Immobilization of Right Upper Extremity using Other Device (ICD-10-PCS; CPT 27245; principal; 2024-04-23 13:30)
DX: S72.141A Displaced intertrochanteric fracture of right femur, initial encounter for closed fracture (principal); N39.0 Urinary tract infection, site not specified; S42.211A Unspecified displaced fracture of surgical neck of right humerus, initial encounter for closed fracture; B96.20 Unspecified Escherichia coli [E. coli] as the cause of diseases classified elsewhere; I12.9 Hypertensive chronic kidney disease with stage 1 through stage 4 chronic kidney disease, or unspecified chronic kidney disease; E11.22 Type 2 diabetes mellitus with diabetic chronic kidney disease; N18.2 Chronic kidney disease, stage 2 (mild); K21.9 Gastro-esophageal reflux disease without esophagitis; I35.0 Nonrheumatic aortic (valve) stenosis; M19.90 Unspecified osteoarthritis, unspecified site; I48.0 Paroxysmal atrial fibrillation; H40.9 Unspecified glaucoma; D64.89 Other specified anemias; R33.8 Other retention of urine; F41.1 Generalized anxiety disorder; E78.2 Mixed hyperlipidemia; M85.80 Other specified disorders of bone density and structure, unspecified site; M47.816 Spondylosis without myelopathy or radiculopathy, lumbar region; W19.XXXA Unspecified fall, initial encounter; Z86.73 Personal history of transient ischemic attack (TIA), and cerebral infarction without residual deficits; Z90.49 Acquired absence of other specified parts of digestive tract; Z90.710 Acquired absence of both cervix and uterus; Z79.82 Long term (current) use of aspirin; Z79.84 Long term (current) use of oral hypoglycemic drugs
CPT/HCPCS: 36415; 70450; 71045; 73030; 73200; 73502; 73630; 73700; 80048; 80053; 81001; 82306; 82948; 85025; 85055; 86850; 86880; 86900; 86901; 86902; 87040; 87086; 87186; 93005; 93971; 96361; 96365; 96375; 97110; 97162; 97166; 97530; 97535; 99199; 99285; A9270; C1713; G0378; J0690; J0696; J1650; J1815; J2003; J2270; J2405; J2704; J3010; J3370; J7030; J7120